=== PATIENT | female | born 1960 ===

== ENCOUNTER 2021-03-02 13:49 | Emergency (ER) | payer OTHER, SELFPAY ==
[2021-03-02 13:53] VITALS: BP 157/82; PULSE 77; RESP 16; TEMP 37.4; O2SAT 100; BMI 43.0
--- NOTE | 2021-03-02 13:58 | PC.NURSE ---
endorsing si in triage, eder jeffries rn called and aware
[2021-03-02 14:40] LABS: MANUAL DIFF FLAG NO
[2021-03-02 14:41] LABS: Basophils Absolute Auto 0.1 X10*3/uL (0.0-0.2); Basophils Percent Auto 0.8 % (0-2); Eosinophils Absolute Auto 0.2 X10*3/uL (0.0-0.4); Eosinophils Percent Auto 3.8 % (0-4); Hematocrit 38.4 % (37-47); Hemoglobin 12.8 g/dl (12.0-16.0); Imm Gran Abs Auto 0.01 X10*3/uL (0.00-0.03); Imm Gran Pct Auto 0.2 % (0.0-0.4); Lymphocytes Absolute Auto 2.3 X10*3/uL (1.2-4.9); Lymphocytes Percent Auto 36.7 % (20-40); Mean Corpuscular HGB Conc 33.3 g/dl (31.0-35.0); Mean Corpuscular Hemoglobin 30.3 pg (27.0-33.0); Mean Platelet Volume 11.1 fL (9.4-12.3); Monocytes Absolute Auto 0.6 X10*3/uL (0.1-1.2); Monocytes Percent Auto 9.4 % (2-11); Neutrophils Absolute Auto 3.1 X10*3/uL (2.0-8.3); Neutrophils Percent Auto 49.1 % (45-73); Platelet Count 236 X10*3/uL (160-400); Red Blood Count 4.22 X10*6/uL (4.20-5.50); Red Cell Distribution Width 13.5 % (11.0-16.0); White Blood Count 6.3 X10*3/uL (4.8-10.8)
--- NOTE | 2021-03-02 14:47 | ED_ITS ---
HPI - Psych General Chief Complaint: Psychiatric Symptoms Stated Complaint: crisis Time Seen by Provider: 03/02/21 13:54 History of Present Illness HPI Narrative: This is a 60 years old of female with history of schizophrenia presented with a chief complain of auditory hallucination. She is also feeling depressed she has a history of prior psychiatric hospitalization. He denies any systemic symptoms there is no fever no vomiting no abdominal pain. MD complaint: feels depressed Onset (ago): day(s) (1) Duration: constant Related Data Allergies Allergy/AdvReac Type Severity Reaction Status Date / Time No Known Allergies Allergy Verified 03/02/21 13:54 Review of Systems Review of Systems: Yes all other systems are reviewed and are negative Cardiovascular: Cardiovascular: Denies chest pain, Denies chest pain at rest and Denies chest pain with activity Respiratory: Respiratory: Reports no additional respiratory complaints and Reports no additional respiratory complaints Gastrointestinal: Gastrointestinal: Reports no additional gastrointestinal complaints and Denies abdominal pain Genitourinary: Genitourinary: Reports no additional female genitourinary complaints Psychiatric: Psychiatric: Reports anxiety PMFSH Social History Social History Advance Directives: No Advance Directives Information Provided: No Physical Exam Vital Signs: Vital Signs: Last Vital Signs Temp 99.3 F 03/02/21 13:53 Pulse 77 03/02/21 13:53 Resp 18 03/02/21 15:43 BP 157/82 H 03/02/21 13:53 Pulse Ox 100 03/02/21 13:53 Body Mass Index 43.0 Const: General: cooperative Orientation/consciousness: oriented to person and oriented to place HENMT: Head: Yes normal to inspection Eyes: General: appearance normal, both eyes and all related structures Neck: Neck: Yes normal visual inspection, Yes full ROM and Yes no lymphadenopathy Thyroid: Thyroid normal Chest: Chest palpation & inspection: normal inspection of the chest Resp: Effort & Inspection: normal respiratory effort Cardio: Rate: regular rate Rhythm: regular rhythm GI: Inspection: Yes normal to inspection Skin: General skin exam: no rashes or lesions noted and elasticity normal Neuro: General: oriented to person and oriented to place Extrem: General: Yes normal to inspection, Yes full ROM and Yes capillary refill normal Course Course Course Narrative: case was trasferred to Dr Zaman MDM - Psych Lab Data Result diagrams: 03/02/21 14:31 03/02/21 14:31 Labs: Lab Results 03/02/21 03/02/21 03/02/21 Range/Units 14:31 14:31 14:31 WBC 6.3 (4.8-10.8) X10*3/uL RBC 4.22 (4.20-5.50) X10*6/uL Hgb 12.8 (12.0-16.0) g/dl Hct 38.4 (37-47) % MCV 91.0 (80-98) fL MCH 30.3 (27.0-33.0) pg MCHC 33.3 (31.0-35.0) g/dl RDW 13.5 (11.0-16.0) % Plt Count 236 (160-400) X10*3/uL MPV 11.1 (9.4-12.3) fL Immature Gran % (Auto) 0.2 (0.0-0.4) % Neut % (Auto) 49.1 (45-73) % Lymph % (Auto) 36.7 (20-40) % Fergus % (Auto) 9.4 (2-11) % Eos % (Auto) 3.8 (0-4) % Baso % (Auto) 0.8 (0-2) % Lymph # (Auto) 2.3 (1.2-4.9) X10*3/uL Fergus # (Auto) 0.6 (0.1-1.2) X10*3/uL Eos # (Auto) 0.2 (0.0-0.4) X10*3/uL Baso # (Auto) 0.1 (0.0-0.2) X10*3/uL Abs Immat Gran (auto) 0.01 (0.00-0.03) X10*3/uL Absolute Neuts (auto) 3.1 (2.0-8.3) X10*3/uL Absolute Nucleated RBC 0.000 (0.0-0.012) X10*3/uL Nucleated RBC % (auto) 0.0 (0.0-0.2) /100WBC Sodium 142 (135-145) mmol/L Potassium 4.3 (3.3-5.1) mmol/L Chloride 105 (96-108) mmol/L Carbon Dioxide 30 H (22-29) mmol/L Anion Gap 11 L (12-20) BUN 16 (9-16) mg/dL Creatinine 0.77 (0.5-1.4) mg/dL Estim Creat Clear Calc 84.6 Estimated GFR > 60 Random Glucose 96 (60-115) mg/dL Calcium 9.5 (8.4-10.2) mg/dL Total Bilirubin 0.5 (0.0-1.0) mg/dL AST 24 (5-31) U/L ALT 20 (0-31) U/L Alkaline Phosphatase 47 (39-117) U/L Total Protein 7.5 (6.5-8.0) g/dL Albumin 4.7 (3.5-5.0) g/dL Urine Color YELLOW Urine Appearance CLEAR Urine pH 6.5 (5.0-8.0) Ur Specific [place] 1.015 (1.005-1.025) Urine Protein NEG (NEG-TRACE) MG/DL Urine Glucose (UA) NEG (NEG) MG/DL Urine Ketones NEG (NEG) MG/DL Urine Blood NEG (NEG) Urine Nitrite NEG (NEG) Ur Leukocyte Esterase NEG (NEG) Urine RBC 0-2 (0) /HPF Urine WBC 0 (0-4) /HPF Ur Squamous Epith Cells NONE /LPF Urine Bacteria NONE /LPF Urine Opiates Screen (Not Detect) Ur Barbiturates Screen (Not Detect) Ur Phencyclidine Scrn (Not Detect) Ur Amphetamines Screen (Not Detect) U Benzodiazepines Scrn (Not Detect) Urine Cocaine Screen (Not Detect) U Marijuana (THC) Screen (Not Detect) 03/02/21 Range/Units 14:31 WBC (4.8-10.8) X10*3/uL RBC (4.20-5.50) X10*6/uL Hgb (12.0-16.0) g/dl Hct (37-47) % MCV (80-98) fL MCH (27.0-33.0) pg MCHC (31.0-35.0) g/dl RDW (11.0-16.0) % Plt Count (160-400) X10*3/uL MPV (9.4-12.3) fL Immature Gran % (Auto) (0.0-0.4) % Neut % (Auto) (45-73) % Lymph % (Auto) (20-40) % Fergus % (Auto) (2-11) % Eos % (Auto) (0-4) % Baso % (Auto) (0-2) % Lymph # (Auto) (1.2-4.9) X10*3/uL Fergus # (Auto) (0.1-1.2) X10*3/uL Eos # (Auto) (0.0-0.4) X10*3/uL Baso # (Auto) (0.0-0.2) X10*3/uL Abs Immat Gran (auto) (0.00-0.03) X10*3/uL Absolute Neuts (auto) (2.0-8.3) X10*3/uL Absolute Nucleated RBC (0.0-0.012) X10*3/uL Nucleated RBC % (auto) (0.0-0.2) /100WBC Sodium (135-145) mmol/L Potassium (3.3-5.1) mmol/L Chloride (96-108) mmol/L Carbon Dioxide (22-29) mmol/L Anion Gap (12-20) BUN (9-16) mg/dL Creatinine (0.5-1.4) mg/dL Estim Creat Clear Calc Estimated GFR Random Glucose (60-115) mg/dL Calcium (8.4-10.2) mg/dL Total Bilirubin (0.0-1.0) mg/dL AST (5-31) U/L ALT (0-31) U/L Alkaline Phosphatase (39-117) U/L Total Protein (6.5-8.0) g/dL Albumin (3.5-5.0) g/dL Urine Color Urine Appearance Urine pH (5.0-8.0) Ur Specific [place] (1.005-1.025) Urine Protein (NEG-TRACE) MG/DL Urine Glucose (UA) (NEG) MG/DL Urine Ketones (NEG) MG/DL Urine Blood (NEG) Urine Nitrite (NEG) Ur Leukocyte Esterase (NEG) Urine RBC (0) /HPF Urine WBC (0-4) /HPF Ur Squamous Epith Cells /LPF Urine Bacteria /LPF Urine Opiates Screen Not Detected (Not Detect) Ur Barbiturates Screen Not Detected (Not Detect) Ur Phencyclidine Scrn Not Detected (Not Detect) Ur Amphetamines Screen Not Detected (Not Detect) U Benzodiazepines Scrn POSITIVE H (Not Detect) Urine Cocaine Screen Not Detected (Not Detect) U Marijuana (THC) Screen Not Detected (Not Detect) Discharge Plan Discharge Clinical Impression: Hallucination
[2021-03-02 14:49] LABS: Glucose Urine UA NEG (NEG); Leukocyte Esterase Urine NEG (NEG); Nitrite Urine NEG (NEG); PH 6.5 (5.0-8.0); Specific Gravity - Urine 1.015 (1.005-1.025); Urine Blood NEG (NEG); Urine Ketones NEG (NEG); Urine Protein NEG (NEG-TRACE)
[2021-03-02 14:50] LABS: Appearance Urine CLEAR; Color Urine YELLOW
[2021-03-02] MEDS: LORazepam 1 MG TABLET PO (15:04)
[2021-03-02 15:10] LABS: RBC Urine 0-2 /HPF (0); WBC Urine 0 /HPF (0-4)
[2021-03-02 15:11] LABS: Amphetamine Screen Urine Not Detected (Not Detect); Barbiturates, Urine Not Detected (Not Detect); Benzodiazepines Screen Urine POSITIVE (Not Detect); Cannabinoid Screen Urine Not Detected (Not Detect); Cocaine Screen Urine Not Detected (Not Detect); Opiate Screen Urine Not Detected (Not Detect); Phencyclidine Screen Urine Not Detected (Not Detect)
[2021-03-02 15:13] LABS: Alanine Aminotransferase 20 U/L (0-31); Albumin Level 4.7 g/dL (3.5-5.0); Alkaline Phosphatase 47 U/L (39-117); Anion Gap 11 (12-20); Aspartate Amino Transferase 24 U/L (5-31); Bilirubin Total 0.5 mg/dL (0.0-1.0); Blood Urea Nitrogen 16 mg/dL (9-16); Calcium 9.5 mg/dL (8.4-10.2); Carbon Dioxide 30 mmol/L (22-29); Chloride 105 mmol/L (96-108); Creatinine Clr Calc Pharmacy 84.6; Estimated Glomerular Filt Rate > 60; Glucose Random 96 mg/dL (60-115); Potassium 4.3 mmol/L (3.3-5.1); Sodium 142 mmol/L (135-145); Total Protein 7.5 g/dL (6.5-8.0)
--- NOTE | 2021-03-02 15:22 | PC.NURSE ---
FAXED AND CALLED TO [facility] SPOKE WITH DERECK
[2021-03-02 15:43] VITALS: RESP 18
[2021-03-02 17:41] VITALS: RESP 18
[2021-03-02] MEDS: LORazepam 1 MG TABLET 2 MG PO (18:39)
--- NOTE | 2021-03-02 18:51 | PC.NURSE ---
[facility] HERE TO EVALUATE PATIENT
[2021-03-02 19:40] VITALS: BP 126/60; PULSE 77; RESP 17; TEMP 36.6; O2SAT 94
--- NOTE | 2021-03-02 21:36 | PC.NURSE ---
PT RESTING IN CHAIR, SKIN PWD RESPIRATIONS EVEN UNLABORED, OFFERS NO COMPLAINTS AT THIS TIME, PER N PT INPT BEDSEARCH. PO AT BEDSIDE FOR SAFETY.
[2021-03-02 21:54] VITALS: BP 93/51; PULSE 60; RESP 20; TEMP 36.9; O2SAT 98
--- NOTE | 2021-03-02 22:57 | PC.NURSE ---
PT AMB TO BATHROOM STEADY GAIT, PLEASANT WITH RN, MOVED TO 6H STRETCHER FOR COMFORT. INPT BEDSEARCH, AWARE OF PLAN OF CARE. PO AT BEDSIDE FOR SAFETY.
[2021-03-03] VITALS: RESP 16
--- NOTE | 2021-03-03 | ECG_ITS ---
Test Reason : MEDICAL CLEARANCE Blood Pressure : / mmHG Vent. Rate : 054 BPM Atrial Rate : 054 BPM P-R Int : 152 ms QRS Dur : 088 ms QT Int : 440 ms P-R-T Axes : 065 066 028 degrees QTc Int : 417 ms Sinus bradycardia with Premature ventricular complexes Otherwise normal ECG No previous ECGs available Referred By: Macrina Cardona Electronically Signed By:Jarred Mccord
[2021-03-03 03:58] VITALS: BP 126/67; PULSE 61
[2021-03-03] MEDS: cloNIDine HCL 0.1 MG TABLET PO ×2 (03:58→09:20)
[2021-03-03] MEDS: diazePAM 5 MG TABLET PO (04:00)
[2021-03-03 04:01] VITALS: BP 126/67; PULSE 61; RESP 58; O2SAT 97
--- NOTE | 2021-03-03 04:02 | PC.NURSE ---
pt states she was feeling anxiouse inside, pt medicated, vitals stable. pt calm and cooperative.
--- NOTE | 2021-03-03 05:23 | PC.NURSE ---
pt sleeping medication had a good effect.
[2021-03-03 07:38] VITALS: BP 118/64; PULSE 61; RESP 18; O2SAT 98
--- NOTE | 2021-03-03 08:10 | PC.NURSE ---
[facility] ([phone]) at [address] [place] [id number] was called this am for pt suboxone verification. [facility] is closed at this time, but a message was left on there voicemail for them to return call to this rn. pt is aware.
--- NOTE | 2021-03-03 08:29 | PC.NURSE ---
Report received. PT ambulated to pod with steady gait. Pt requesting medication. Calm and cooperative. PT is inpatient bedsearch
--- NOTE | 2021-03-03 08:43 | PC.NURSE ---
leon hadley (rn, information tech) from [facility] returned call and states that pt takes suboxone 12mg film daily, ayala ([facility] information tech) and skip (rn) aware.
[2021-03-03 09:15] VITALS: BP 120/72; PULSE 59; RESP 18; TEMP 37.2; O2SAT 98
[2021-03-03 09:20] VITALS: BP 120/72; PULSE 59
[2021-03-03] MEDS: Buprenorphine/Naloxone 4/1 mg FILM 1 FILM SUBLINGUAL (09:21)
[2021-03-03] MEDS: LORazepam 1 MG TABLET 2 MG PO (09:21)
[2021-03-03 11:09] LABS: COVID-19 Test Negative (Negative)
--- NOTE | 2021-03-03 11:30 | PC.NURSE ---
Nurse to nurse completed with Nallely SCHUSTER from [facility], they request EKG be completed. Pt to arrive at [facility] for 1:30pm
[2021-03-03] MEDS: diphenhydrAMINE HCL 25 MG TABLET 50 MG PO (12:06)
== END 2021-03-03 12:36 ==
PROVIDERS: Nurse Practitioner Family; Nurse Practitioner Primary Care; Emergency Provider Emergency Medicine
DX: R44.0 Auditory hallucinations (principal); F33.1 Major depressive disorder, recurrent, moderate; Z79.899 Other long term (current) drug therapy; Z20.822 Contact with and (suspected) exposure to COVID-19
CPT/HCPCS: 36415; 80053; 80307; 81001; 85025; 87635; 93005; 99285; Q0163

== ENCOUNTER 2021-05-16 21:52 | Inpatient (IN) | payer OTHER, SELFPAY ==
[2021-05-16 21:57] VITALS: BP 124/82; PULSE 65; O2SAT 95
[2021-05-16 21:59] VITALS: BP 120/64; PULSE 64; RESP 18; TEMP 36.6; O2SAT 98; BMI 42.9
--- NOTE | 2021-05-16 22:17 | PC.NURSE ---
pt is not med compliant with any meds. per patient i havent' taken it in months .
--- NOTE | 2021-05-16 22:37 | PC.NURSE ---
Pt requests medication to help her sleep and to calm her down. pt edcuated to process of [facility] pod. pt informed that she must await provider
[2021-05-16 22:40] LABS: Basophils Percent Auto 0.6 % (0-2); Eosinophils Absolute Auto 0.3 X10*3/uL (0.0-0.4); Eosinophils Percent Auto 4.2 % (0-4); Hematocrit 34.9 % (37-47); Hemoglobin 11.5 g/dl (12.0-16.0); Imm Gran Abs Auto 0.01 X10*3/uL (0.00-0.03); Imm Gran Pct Auto 0.2 % (0.0-0.4); Lymphocytes Absolute Auto 2.1 X10*3/uL (1.2-4.9); MANUAL DIFF FLAG NO; Mean Corpuscular Hemoglobin 29.8 pg (27.0-33.0); Mean Corpuscular Volume 90.4 fL (80-98); Mean Platelet Volume 10.7 fL (9.4-12.3); Monocytes Absolute Auto 0.6 X10*3/uL (0.1-1.2); Monocytes Percent Auto 9.7 % (2-11); Neutrophils Absolute Auto 3.5 X10*3/uL (2.0-8.3); Neutrophils Percent Auto 53.3 % (45-73); Platelet Count 220 X10*3/uL (160-400); Red Blood Count 3.86 X10*6/uL (4.20-5.50); White Blood Count 6.6 X10*3/uL (4.8-10.8)
[2021-05-16 22:42] LABS: Urine Pregnancy NEGATIVE (NEGATIVE)
[2021-05-16 22:43] LABS: UPreg QC Valid YES
[2021-05-16 22:44] LABS: Appearance Urine HAZY; Color Urine YELLOW; Glucose Urine UA NEG (NEG); Leukocyte Esterase Urine 1+ (NEG); Nitrite Urine NEG (NEG); Specific Gravity - Urine <= 1.005 (1.005-1.025); Urine Blood NEG (NEG); Urine Ketones NEG (NEG); Urine Protein NEG (NEG-TRACE)
[2021-05-16 22:56] LABS: COVID-19 Test Negative (Negative); IDNOW Serial# 9DD0AD1C
[2021-05-16 22:59] LABS: Bacteria Urine 1+ /LPF; RBC Urine 0-2 /HPF (0); Squamous Epithelial Cell Urine 1+ /LPF; WBC Urine 0-2 /HPF (0-4)
[2021-05-16 23:05] LABS: Ethanol < 10 mg/dL
[2021-05-16 23:07] LABS: Amphetamine Screen Urine Not Detected (Not Detect); Barbiturates, Urine Not Detected (Not Detect); Benzodiazepines Screen Urine POSITIVE (Not Detect); Cannabinoid Screen Urine Not Detected (Not Detect); Cocaine Screen Urine Not Detected (Not Detect); Opiate Screen Urine Not Detected (Not Detect); Phencyclidine Screen Urine Not Detected (Not Detect)
[2021-05-16 23:08] LABS: Alanine Aminotransferase 16 U/L (0-31); Albumin Level 4.4 g/dL (3.5-5.0); Alkaline Phosphatase 56 U/L (39-117); Anion Gap 11 (12-20); Aspartate Amino Transferase 23 U/L (5-31); Bilirubin Total 0.4 mg/dL (0.0-1.0); Blood Urea Nitrogen 19 mg/dL (9-16); Calcium 9.5 mg/dL (8.4-10.2); Carbon Dioxide 28 mmol/L (22-29); Chloride 107 mmol/L (96-108); Creatinine Clr Calc Pharmacy 76.4; Estimated Glomerular Filt Rate 58; Glucose Random 89 mg/dL (60-115); Potassium 4.4 mmol/L (3.3-5.1); Sodium 142 mmol/L (135-145); Total Protein 6.8 g/dL (6.5-8.0)
--- NOTE | 2021-05-16 23:12 | ED.PSYCH ---
HPI - Psych General Chief Complaint: Psychiatric Symptoms Stated Complaint: SI? Time Seen by Provider: 05/16/21 23:12 Source: patient Mode of arrival: EMS History of Present Illness HPI Narrative: This is a 60-year-old female with extensive past psychiatric history who states that she has been intermittently taking her medications but on review of documentation patient has been declining her medications. She states that she is having auditory hallucinations and that the voices are telling her to hurt other people, however patient states that ?I would never do this?. Otherwise, she denies any feelings wanting to kill herself but states she does feel sad. Otherwise, patient denies any fever, chills, shortness of breath, chest pain, urinary symptoms. Related Data Allergies Allergy/AdvReac Type Severity Reaction Status Date / Time No Known Allergies Allergy Verified 03/02/21 13:54 Review of Systems Review of Systems: Pertinent positives and negatives as stated in HPI 10 point review of systems is otherwise negative. PMFSH Past Medical History Source: nursing notes reviewed Social History Social History Alcohol intake: current Alcohol intake frequency: 0-2 drinks per day Patient Tobacco Use Status: Current everyday Tobacco user Smoked in Last 30 Days: Yes Use of substances other than those prescribed or required for medical reasons: Refusing to respond Advance Directives: No Patient : No Physical Exam Vital Signs: Vital Signs: Last Vital Signs Temp 97.9 F 05/17/21 00:05 Pulse 84 05/17/21 00:05 Resp 18 05/17/21 00:05 BP 122/66 05/17/21 00:05 Pulse Ox 98 05/17/21 00:05 Body Mass Index 42.9 VITAL SIGNS: Reviewed. GENERAL: Well developed, well nourished, in no acute distress. HEAD: Normocephalic/atraumatic EYES: PERRLA, EOMI OROPHARYNX: no oral lesions noted, posterior pharynx clear NECK: Supple, no adenopathy LUNGS: Normal breath sounds. No adventitious sounds or accessory muscle use. SpO2<98> CARDIOVASCULAR: Regular rate and rhythm without noted murmurs ABDOMEN: Soft, non-tender, non-distended with bowel sounds. NEUROLOGIC: Alert and oriented x 4. PSYCH: Depressed affect Course Course Course Narrative: This is a 60-year-old female with history and clinical presentation suggestive of auditory hallucinations, depressed symptoms. On review of all investigations patient has a UTI for which she will be treated and is otherwise medically cleared for evaluation by the behavioral team. Reevaluation(s) Reevaluation #1: Patient placed in physician observation because the patient needed more time to be evaluated by the behavioral team. At the time observation was started the patient's vital signs were stable, patient is alert and oriented, neuro: Nonfocal, CV RRR, lungs clear Time: 00:39 MDM - Psych Lab Data Result diagrams: 05/16/21 22:32 05/16/21 22:32 Labs: Lab Results 05/16/21 05/16/21 05/16/21 Range/Units 22:32 22:32 22:32 WBC 6.6 (4.8-10.8) X10*3/uL RBC 3.86 L (4.20-5.50) X10*6/uL Hgb 11.5 L (12.0-16.0) g/dl Hct 34.9 L (37-47) % MCV 90.4 (80-98) fL MCH 29.8 (27.0-33.0) pg MCHC 33.0 (31.0-35.0) g/dl RDW 14.0 (11.0-16.0) % Plt Count 220 (160-400) X10*3/uL MPV 10.7 (9.4-12.3) fL Immature Gran % (Auto) 0.2 (0.0-0.4) % Neut % (Auto) 53.3 (45-73) % Lymph % (Auto) 32.0 (20-40) % Gregory % (Auto) 9.7 (2-11) % Eos % (Auto) 4.2 H (0-4) % Baso % (Auto) 0.6 (0-2) % Lymph # (Auto) 2.1 (1.2-4.9) X10*3/uL Gregory # (Auto) 0.6 (0.1-1.2) X10*3/uL Eos # (Auto) 0.3 (0.0-0.4) X10*3/uL Baso # (Auto) 0.0 (0.0-0.2) X10*3/uL Abs Immat Gran (auto) 0.01 (0.00-0.03) X10*3/uL Absolute Neuts (auto) 3.5 (2.0-8.3) X10*3/uL Absolute Nucleated RBC 0.000 (0.0-0.012) X10*3/uL Nucleated RBC % (auto) 0.0 (0.0-0.2) /100WBC Sodium 142 (135-145) mmol/L Potassium 4.4 (3.3-5.1) mmol/L Chloride 107 (96-108) mmol/L Carbon Dioxide 28 (22-29) mmol/L Anion Gap 11 L (12-20) BUN 19 H (9-16) mg/dL Creatinine 0.99 (0.5-1.4) mg/dL Estim Creat Clear Calc 76.4 Estimated GFR 58 Random Glucose 89 (60-115) mg/dL Calcium 9.5 (8.4-10.2) mg/dL Total Bilirubin 0.4 (0.0-1.0) mg/dL AST 23 (5-31) U/L ALT 16 (0-31) U/L Alkaline Phosphatase 56 (39-117) U/L Total Protein 6.8 (6.5-8.0) g/dL Albumin 4.4 (3.5-5.0) g/dL Urine Color Urine Appearance Urine pH (5.0-8.0) Ur Specific [place] (1.005-1.025) Urine Protein (NEG-TRACE) MG/DL Urine Glucose (UA) (NEG) MG/DL Urine Ketones (NEG) MG/DL Urine Blood (NEG) Urine Nitrite (NEG) Ur Leukocyte Esterase (NEG) Urine RBC (0) /HPF Urine WBC (0-4) /HPF Ur Squamous Epith Cells /LPF Urine Bacteria /LPF Urine Test (NEGATIVE) Urine Opiates Screen (Not Detect) Ur Barbiturates Screen (Not Detect) Ur Phencyclidine Scrn (Not Detect) Ur Amphetamines Screen (Not Detect) U Benzodiazepines Scrn (Not Detect) Urine Cocaine Screen (Not Detect) U Marijuana (THC) Screen (Not Detect) Ethyl Alcohol mg/dL COVID-19 (MIC) Negative (Negative) COVID-19 Clin Com See Note 05/16/21 05/16/21 05/16/21 Range/Units 22:32 22:32 22:32 WBC (4.8-10.8) X10*3/uL RBC (4.20-5.50) X10*6/uL Hgb (12.0-16.0) g/dl Hct (37-47) % MCV (80-98) fL MCH (27.0-33.0) pg MCHC (31.0-35.0) g/dl RDW (11.0-16.0) % Plt Count (160-400) X10*3/uL MPV (9.4-12.3) fL Immature Gran % (Auto) (0.0-0.4) % Neut % (Auto) (45-73) % Lymph % (Auto) (20-40) % Gregory % (Auto) (2-11) % Eos % (Auto) (0-4) % Baso % (Auto) (0-2) % Lymph # (Auto) (1.2-4.9) X10*3/uL Gregory # (Auto) (0.1-1.2) X10*3/uL Eos # (Auto) (0.0-0.4) X10*3/uL Baso # (Auto) (0.0-0.2) X10*3/uL Abs Immat Gran (auto) (0.00-0.03) X10*3/uL Absolute Neuts (auto) (2.0-8.3) X10*3/uL Absolute Nucleated RBC (0.0-0.012) X10*3/uL Nucleated RBC % (auto) (0.0-0.2) /100WBC Sodium (135-145) mmol/L Potassium (3.3-5.1) mmol/L Chloride (96-108) mmol/L Carbon Dioxide (22-29) mmol/L Anion Gap (12-20) BUN (9-16) mg/dL Creatinine (0.5-1.4) mg/dL Estim Creat Clear Calc Estimated GFR Random Glucose (60-115) mg/dL Calcium (8.4-10.2) mg/dL Total Bilirubin (0.0-1.0) mg/dL AST (5-31) U/L ALT (0-31) U/L Alkaline Phosphatase (39-117) U/L Total Protein (6.5-8.0) g/dL Albumin (3.5-5.0) g/dL Urine Color YELLOW Urine Appearance HAZY Urine pH 6.0 (5.0-8.0) Ur Specific [place] <= 1.005 (1.005-1.025) Urine Protein NEG (NEG-TRACE) MG/DL Urine Glucose (UA) NEG (NEG) MG/DL Urine Ketones NEG (NEG) MG/DL Urine Blood NEG (NEG) Urine Nitrite NEG (NEG) Ur Leukocyte Esterase 1+ H (NEG) Urine RBC 0-2 (0) /HPF Urine WBC 0-2 (0-4) /HPF Ur Squamous Epith Cells 1+ /LPF Urine Bacteria 1+ /LPF Urine Test NEGATIVE (NEGATIVE) Urine Opiates Screen (Not Detect) Ur Barbiturates Screen (Not Detect) Ur Phencyclidine Scrn (Not Detect) Ur Amphetamines Screen (Not Detect) U Benzodiazepines Scrn (Not Detect) Urine Cocaine Screen (Not Detect) U Marijuana (THC) Screen (Not Detect) Ethyl Alcohol < 10 mg/dL COVID-19 (MIC) (Negative) COVID-19 Clin Com 05/16/21 Range/Units 22:32 WBC (4.8-10.8) X10*3/uL RBC (4.20-5.50) X10*6/uL Hgb (12.0-16.0) g/dl Hct (37-47) % MCV (80-98) fL MCH (27.0-33.0) pg MCHC (31.0-35.0) g/dl RDW (11.0-16.0) % Plt Count (160-400) X10*3/uL MPV (9.4-12.3) fL Immature Gran % (Auto) (0.0-0.4) % Neut % (Auto) (45-73) % Lymph % (Auto) (20-40) % Gregory % (Auto) (2-11) % Eos % (Auto) (0-4) % Baso % (Auto) (0-2) % Lymph # (Auto) (1.2-4.9) X10*3/uL Gregory # (Auto) (0.1-1.2) X10*3/uL Eos # (Auto) (0.0-0.4) X10*3/uL Baso # (Auto) (0.0-0.2) X10*3/uL Abs Immat Gran (auto) (0.00-0.03) X10*3/uL Absolute Neuts (auto) (2.0-8.3) X10*3/uL Absolute Nucleated RBC (0.0-0.012) X10*3/uL Nucleated RBC % (auto) (0.0-0.2) /100WBC Sodium (135-145) mmol/L Potassium (3.3-5.1) mmol/L Chloride (96-108) mmol/L Carbon Dioxide (22-29) mmol/L Anion Gap (12-20) BUN (9-16) mg/dL Creatinine (0.5-1.4) mg/dL Estim Creat Clear Calc Estimated GFR Random Glucose (60-115) mg/dL Calcium (8.4-10.2) mg/dL Total Bilirubin (0.0-1.0) mg/dL AST (5-31) U/L ALT (0-31) U/L Alkaline Phosphatase (39-117) U/L Total Protein (6.5-8.0) g/dL Albumin (3.5-5.0) g/dL Urine Color Urine Appearance Urine pH (5.0-8.0) Ur Specific [place] (1.005-1.025) Urine Protein (NEG-TRACE) MG/DL Urine Glucose (UA) (NEG) MG/DL Urine Ketones (NEG) MG/DL Urine Blood (NEG) Urine Nitrite (NEG) Ur Leukocyte Esterase (NEG) Urine RBC (0) /HPF Urine WBC (0-4) /HPF Ur Squamous Epith Cells /LPF Urine Bacteria /LPF Urine Test (NEGATIVE) Urine Opiates Screen Not Detected (Not Detect) Ur Barbiturates Screen Not Detected (Not Detect) Ur Phencyclidine Scrn Not Detected (Not Detect) Ur Amphetamines Screen Not Detected (Not Detect) U Benzodiazepines Scrn POSITIVE H (Not Detect) Urine Cocaine Screen Not Detected (Not Detect) U Marijuana (THC) Screen Not Detected (Not Detect) Ethyl Alcohol mg/dL COVID-19 (MIC) (Negative) COVID-19 Clin Com
[2021-05-16] MEDS: cephALEXin 500 MG CAPSULE PO (23:42)
--- NOTE | 2021-05-16 23:55 | PC.NURSE ---
provided verbal order to contact [facility] at this time.
[2021-05-17] VITALS (7 sets, daily range): BP systolic 122–149; BP diastolic 55–97; PULSE 54–84; RESP 16–18; TEMP 36–36.6; O2SAT 97–99
--- NOTE | 2021-05-17 00:24 | PC.NURSE ---
pt becomes verbally aggressive when asked to step away from nurses situation so that this brief writer can disclose sensative patient information to [facility]- You don't fucking know what i'm going to do. I'm not going to fucking eat my sandwich here. You can't tell me what to do, I don't like you're attiude .
[2021-05-17] MEDS: diphenhydrAMINE HCL 25 MG TABLET PO (00:28)
--- NOTE | 2021-05-17 06:52 | PC.NURSE ---
[facility] pharmacy contacted to verify PT med list.
[2021-05-17] MEDS: Buprenorphine/Naloxone 8/2 mg FILM 2 FILM SUBLINGUAL (08:07)
[2021-05-17] MEDS: Cholecalciferol (Vitamin D3) 25 MCG TABLET PO (08:07)
[2021-05-17] MEDS: cloNIDine HCL 0.1 MG TABLET PO ×3 (08:07→21:20)
[2021-05-17] MEDS: HaloperidoL 1 MG TABLET 2 MG PO ×2 (08:08→21:20)
[2021-05-17] MEDS: hydrOXYzine HCL 50 MG TABLET PO ×3 (08:09→21:24)
[2021-05-17] MEDS: diazePAM 5 MG TABLET PO ×3 (08:14→21:24)
--- NOTE | 2021-05-17 12:17 | PC.NURSE ---
PT RESTING IN HIS ROOM AT THIS TIME. RESP EVEN & NONLABOURED. NO COMPLAINTS OFFERED.
[2021-05-17] MEDS: Buprenorphine/Naloxone 8/2 mg FILM 0.5 FILM SUBLINGUAL ×2 (13:56→21:22)
--- NOTE | 2021-05-17 15:07 | ECG_ITS ---
Test Reason : MEDICALCLEARANCE Blood Pressure : / mmHG Vent. Rate : 053 BPM Atrial Rate : 053 BPM P-R Int : 170 ms QRS Dur : 090 ms QT Int : 458 ms P-R-T Axes : 047 044 056 degrees QTc Int : 429 ms Sinus bradycardia Otherwise normal ECG When compared to the previous EKG of 03 march 2021, Premature ventricular complexes not seen Referred By: Generic ED Physician Electronically Signed By:NELA JAQUEZ
--- NOTE | 2021-05-17 15:11 | PC.NURSE ---
RN TO RN REPORT GIVEN TO [facility]. EKG REQUESTED, ORDER ENTERED.
[2021-05-17] MEDS: Acetaminophen 325 MG TABLET 975 MG PO (18:31)
[2021-05-17] MEDS: Diclofenac Sodium Delayed Rel 75 MG TABLET.DR PO (18:36)
--- NOTE | 2021-05-17 19:58 | PC.NURSE ---
[facility] called and verified the admit order and when pt will be transfered, preferred to wait on meds till she is in m5. pt made aware. pt was asking for all her night time medications at this time. pt calm and cooperative ambulates with a steady gait. needs met at bedside, visable on monitor.
--- NOTE | 2021-05-17 21:33 | PC.NURSE ---
called for the clinical impression to be entered. pt still on the pod tracker.
[2021-05-17] MEDS: Zolpidem Tartrate 5 MG TABLET PO (22:56)
[2021-05-18] MEDS: traZODone HCL 50 MG TABLET PO (00:59)
[2021-05-18] MEDS: diazePAM 5 MG TABLET PO ×3 (00:59→21:34)
--- NOTE | 2021-05-18 02:09 | PC.NURSE ---
pt has been transfered to 512 at 2015 on 05/17/21. unable to depart from tracker due to the doctor needs to put the disposition in. [facility] has been called and the dr has been made aware of the need to enter the information. pt per F29 and F41.9.
[2021-05-18 06:00] VITALS: BP 142/68; PULSE 61; RESP 20; TEMP 36.1; O2SAT 98
[2021-05-18] MEDS: Diclofenac Sodium Delayed Rel 75 MG TABLET.DR PO ×2 (06:20→14:52)
[2021-05-18 08:02] VITALS: BP 151/94; PULSE 69
[2021-05-18] MEDS: cloNIDine HCL 0.1 MG TABLET PO ×3 (08:02→20:49)
[2021-05-18] MEDS: HaloperidoL 1 MG TABLET 2 MG PO ×3 (08:03→18:24)
[2021-05-18] MEDS: Buprenorphine/Naloxone 8/2 mg FILM 1 FILM SUBLINGUAL (08:04)
[2021-05-18] MEDS: Cholecalciferol (Vitamin D3) 25 MCG TABLET PO (08:27)
[2021-05-18] MEDS: hydrOXYzine HCL 50 MG TABLET PO ×3 (09:03→21:38)
--- NOTE | 2021-05-18 10:06 | HO.PSYADMNOT ---
HPI Chief Complaint: SUICIDAL Sources of Information: patient interviewed, chart reviewed and crisis/core team assessment reviewed HPI Subjective Notes: [place] Warning and Conditional Voluntary Narrative: Patient is a 60-year-old female with history of psychotic symptoms who presents for auditory hallucinations affecting her mood in the face of going off medications few weeks ago. She says that since she moved back to her apartment August 2020 she has had trouble sleeping, not had nightmares, feels the house is haunted and has auditory hallucinations telling her to move out of the apartment. These voices are also saying mean and ?disgusting things. ? She says she got better over the winter because she was more able to ignore the voices. However a few weeks ago she decided to stand up to the voices and said ?I am the boss. Since then she has found to have increased anxiety, more nightmares, very little sleep, feeling hyperactive with her mind racing. She also feels physically nauseous. She denies any suicidal ideation or homicidal ideation and clarifies comments made in the ED saying that the voices would tell her to hurt others but she never wanted to and never would. Financial Advisor asked about medications and she said that when the voices got so overwhelming she started forgetting to take medications and even would forget to eat and drink sometimes just trying to cope with the voices. Patient does report feeling depressed, but says it is only because the voices bother her so much; if they were gone she would have no depression. Currently she is feeling a little better now on the unit. She continues to deny any SI or HI. She also has increased insight as she formally thought the voices were form of witchcraft, she now is strongly considering that it is psychiatric illness. To that end patient agrees to increase Haldol. Otherwise she does not want any of her medications changed saying she has been on them for years. Patient denies any drug abuse; she denies history of trauma. She does report that her nephew 3 months ago which was sad and she is tearful when talking about her father's ?long time ago. ? Past Psychiatric History: Psychiatrically hospitalized 2 months ago for similar presentation Med trials: Abilify Seroquel Other benzos Medical Evaluation Reviewed: Yes FORMERLY [facility], [facility] Medical History (Updated 05/18/21 @ 13:31 by Nima Mcguire MD) Opioid use disorder, mild, in sustained remission, on maintenance therapy Family History: deferred Social History: lives alone Substance History: sober for 21 years, on suboxone Trauma History: denies Diagnostics Vital Signs (24Hr): Vital Signs - 24 hr 05/17/21 18:20 05/17/21 19:48 05/17/21 21:20 Temperature 96.8 F Pulse Rate 65 64 Respiratory Rate 18 18 Blood Pressure 127/74 137/97 H Pulse Oximetry 97 05/18/21 06:00 05/18/21 08:02 Temperature 96.9 F Pulse Rate 61 69 Respiratory Rate 20 Blood Pressure 142/68 H 151/94 H Pulse Oximetry 98 Body Mass Index 42.9 Labs Results: 05/16/21 22:32 05/16/21 22:32 Labs: Laboratory Results - last 48 hr 05/16/21 05/16/21 05/16/21 22:32 22:32 22:32 WBC 6.6 RBC 3.86 L Hgb 11.5 L Hct 34.9 L MCV 90.4 MCH 29.8 MCHC 33.0 RDW 14.0 Plt Count 220 MPV 10.7 Immature Gran % (Auto) 0.2 Neut % (Auto) 53.3 Lymph % (Auto) 32.0 Clarke % (Auto) 9.7 Eos % (Auto) 4.2 H Baso % (Auto) 0.6 Lymph # (Auto) 2.1 Clarke # (Auto) 0.6 Eos # (Auto) 0.3 Baso # (Auto) 0.0 Abs Immat Gran (auto) 0.01 Absolute Neuts (auto) 3.5 Absolute Nucleated RBC 0.000 Nucleated RBC % (auto) 0.0 Sodium 142 Potassium 4.4 Chloride 107 Carbon Dioxide 28 Anion Gap 11 L BUN 19 H Creatinine 0.99 Estim Creat Clear Calc 76.4 Estimated GFR 58 Random Glucose 89 Calcium 9.5 Total Bilirubin 0.4 AST 23 ALT 16 Alkaline Phosphatase 56 Total Protein 6.8 Albumin 4.4 Urine Color Urine Appearance Urine pH Ur Specific [place] Urine Protein Urine Glucose (UA) Urine Ketones Urine Blood Urine Nitrite Ur Leukocyte Esterase Urine RBC Urine WBC Ur Squamous Epith Cells Urine Bacteria Urine Test Urine Opiates Screen Ur Barbiturates Screen Ur Phencyclidine Scrn Ur Amphetamines Screen U Benzodiazepines Scrn Urine Cocaine Screen U Marijuana (THC) Screen Ethyl Alcohol COVID-19 (MIC) Negative COVID-19 Clin Com See Note 05/16/21 05/16/21 05/16/21 22:32 22:32 22:32 WBC RBC Hgb Hct MCV MCH MCHC RDW Plt Count MPV Immature Gran % (Auto) Neut % (Auto) Lymph % (Auto) Clarke % (Auto) Eos % (Auto) Baso % (Auto) Lymph # (Auto) Clarke # (Auto) Eos # (Auto) Baso # (Auto) Abs Immat Gran (auto) Absolute Neuts (auto) Absolute Nucleated RBC Nucleated RBC % (auto) Sodium Potassium Chloride Carbon Dioxide Anion Gap BUN Creatinine Estim Creat Clear Calc Estimated GFR Random Glucose Calcium Total Bilirubin AST ALT Alkaline Phosphatase Total Protein Albumin Urine Color YELLOW Urine Appearance HAZY Urine pH 6.0 Ur Specific [place] <= 1.005 Urine Protein NEG Urine Glucose (UA) NEG Urine Ketones NEG Urine Blood NEG Urine Nitrite NEG Ur Leukocyte Esterase 1+ H Urine RBC 0-2 Urine WBC 0-2 Ur Squamous Epith Cells 1+ Urine Bacteria 1+ Urine Test NEGATIVE Urine Opiates Screen Ur Barbiturates Screen Ur Phencyclidine Scrn Ur Amphetamines Screen U Benzodiazepines Scrn Urine Cocaine Screen U Marijuana (THC) Screen Ethyl Alcohol < 10 COVID-19 (MIC) COVID-ihiji Com 05/16/21 22:32 WBC RBC Hgb Hct MCV MCH MCHC RDW Plt Count MPV Immature Gran % (Auto) Neut % (Auto) Lymph % (Auto) Clarke % (Auto) Eos % (Auto) Baso % (Auto) Lymph # (Auto) Clarke # (Auto) Eos # (Auto) Baso # (Auto) Abs Immat Gran (auto) Absolute Neuts (auto) Absolute Nucleated RBC Nucleated RBC % (auto) Sodium Potassium Chloride Carbon Dioxide Anion Gap BUN Creatinine Estim Creat Clear Calc Estimated GFR Random Glucose Calcium Total Bilirubin AST ALT Alkaline Phosphatase Total Protein Albumin Urine Color Urine Appearance Urine pH Ur Specific [place] Urine Protein Urine Glucose (UA) Urine Ketones Urine Blood Urine Nitrite Ur Leukocyte Esterase Urine RBC Urine WBC Ur Squamous Epith Cells Urine Bacteria Urine Test Urine Opiates Screen Not Detected Ur Barbiturates Screen Not Detected Ur Phencyclidine Scrn Not Detected Ur Amphetamines Screen Not Detected U Benzodiazepines Scrn POSITIVE H Urine Cocaine Screen Not Detected U Marijuana (THC) Screen Not Detected Ethyl Alcohol COVID-19 (MIC) COVID-19 Clin Com Meds/Allergies Meds Home Medications Acetaminophen (Acetaminophen 325 Mg Tablet) 650 mg PO Q6H PRN PRN Reason: Headache/Pain Mild Scale (1-3) Al Hydroxide/Mg Hydroxide (Magnesium Hydrox/Alum Hydrox 30 Ml Oral.Susp) 30 ml PO Q6H PRN PRN Reason: Heartburn/Nausea Al Hydroxide/Mg Hydroxide (Magnesium Hydrox/Alum Hydrox 30 Ml Oral.Susp) 30 ml PO Q6H PRN PRN Reason: Heartburn/Nausea Buprenorphine/Naloxone (Buprenorphine/Naloxone 8/2 Mg Film) 1 film SUBLINGUAL DAILY [facility] [place] Last Admin: 05/18/21 08:04 Dose: 1 film Documented by: Buprenorphine/Naloxone (Buprenorphine/Naloxone 8/2 Mg Film) 0.5 film SUBLINGUAL BID@1400,2100 [facility] [place] Last Admin: 05/17/21 21:22 Dose: 0.5 film Documented by: Cefuroxime Axetil (Cefuroxime Axetil 500 Mg Tablet) 500 mg PO BID [facility] [place] Stop: 05/24/21 08:59 Last Admin: 05/18/21 08:27 Dose: 500 mg Documented by: Clonidine HCl (Clonidine Hcl 0.1 Mg Tablet) 0.1 mg PO TID [facility] [place]; Protocol Last Admin: 05/18/21 08:02 Dose: 0.1 mg Documented by: Diazepam (Diazepam 5 Mg Tablet) 5 mg PO TID PRN PRN Reason: Anxiety Last Admin: 05/18/21 08:08 Dose: 5 mg Documented by: Diclofenac Sodium (Diclofenac Sodium Delayed Rel 75 Mg Tablet.) 75 mg PO BID PRN PRN Reason: pain Last Admin: 05/18/21 06:20 Dose: 75 mg Documented by: Haloperidol (Haloperidol 5 Mg Tablet) 5 mg PO BEDTIME NEL Haloperidol (Haloperidol 1 Mg Tablet) 2 mg PO Q4H PRN PRN Reason: anxiety or AH or agitation Last Admin: 05/18/21 12:31 Dose: 2 mg Documented by: Hydroxyzine HCl (Hydroxyzine Hcl 50 Mg Tablet) 50 mg PO Q6H PRN PRN Reason: Anxiety Last Admin: 05/18/21 09:03 Dose: 50 mg Documented by: Magnesium Hydroxide (Milk Of Magnesia 30 Ml Oral.Susp) 30 ml PO DAILY PRN PRN Reason: Constipation Magnesium Hydroxide (Milk Of Magnesia 30 Ml Oral.Susp) 30 ml PO DAILY PRN PRN Reason: Constipation Trazodone HCl (Trazodone Hcl 50 Mg Tablet) 50 mg PO BEDTIME PRN PRN Reason: Insomnia Last Admin: 05/18/21 00:59 Dose: 50 mg Documented by: Vitamin D (Cholecalciferol (Vitamin D3) 25 Mcg Tablet) 25 mcg PO DAILY NEL Last Admin: 05/18/21 08:27 Dose: 25 mcg Documented by: Zolpidem Tartrate (Zolpidem Tartrate 5 Mg Tablet) 5 mg PO BEDTIME PRN PRN Reason: Insomnia Last Admin: 05/17/21 22:56 Dose: 5 mg Documented by: Allergies Allergies Allergy/AdvReac Type Severity Reaction Status Date / Time No Known Allergies Allergy Verified 03/02/21 13:54 Mental Status Exam Mental Status Exam Narrative: Pt is alert and oriented; behavior is cooperative, friendly and calm; patient is not in distress; dressed in casual attire, with purple highlights in her hair and with adequate hygiene; mood is described as ok and affect congruent; eye contact appropriate; Speech is normal rate, volume and prosody and not pressured; no psychomotor agitation/retardation present; thought process is organized, linear, logical and goal directed. Thought content is on getting treatment and otherwise pertinent to relevant topics; some paranoid ideations of house being haunted and AH due to witchcraft but pt is willing to challenge these ideas and responded well to reality testing; no grandiosity; denies any SI/HI. AH; Patients insight and judgment appear relatively intact other than what's mentioned previously. Assessment & Plan Assessment & Plan (1) Schizophrenia: Status: Acute Qualifiers: Schizophrenia type: unspecified Qualified Code(s): F20.9 - Schizophrenia, unspecified Code(s): F20.9 - Schizophrenia, unspecified Assessment and Plan: Schizoaffective disorder remains a rule out. (2) Opioid use disorder, mild, in sustained remission, on maintenance therapy: Status: Acute Code(s): F11.11 - Opioid abuse, in remission Assessment and Plan: IMPRESSION: Patient is a 60-year-old female with history of psychotic symptoms who presents for auditory hallucinations affecting her mood in the face of going off medications few weeks ago. Patient had also has a history of being inconsistent with taking Haldol. Patient meets criteria for schizophrenia, however it is not totally clear that she has paranoid type and will leave as on specified. She has insight and is willing to challenge her thus far held belief that auditory hallucinations are product of witchcraft, more open to this being psychiatric illness. Patient is calm, reasonable and focused on treatment. She agrees to increased dose of Haldol to see if that lowers auditory hallucinations. Financial Advisor reviewed risks and side effects of Haldol and patient agrees to continue. Patient reports that other symptoms such as depressed feelings are product of bothersome auditory hallucinations and she expects them to resolve with AH. Patient's report does sound somewhat like she has recently had a manic episode, however on the unit she is calm, organized and without any manic symptoms at all. Schizoaffective disorder remains a rule out. PLAN: Patient on CV Q 15 minutes checks for safety Increased Haldol to 5 mg at bedtime (was 2 mg b.i.d.) Added Haldol 2 mg p.r.n. q.4 hours for agitation/psychosis/anxiety Will leave other meds as is, patient says has been taking for years Patient educated on: diagnosis Informed Consent: understands Reason for continued inpatient stay Substantial Risk for: med/psych decompensation
[2021-05-18 14:15] VITALS: BP 120/66; PULSE 66
[2021-05-18] MEDS: Buprenorphine/Naloxone 8/2 mg FILM 0.5 FILM SUBLINGUAL (14:16)
--- NOTE | 2021-05-18 16:00 | PC.ADMIT ---
Pt admitted to at on 2014, 05/17/21. Pt was admitted due to AH with commands to hurt people, Pt I would never do this . No SI feels sad . Pt states there are ghosts in her apartment and they are playing her instruments, She tells them to go to another apartment . Pt pleasant cooperative. Pt denies SI/HI. Pt signed a CV.
[2021-05-18 17:36] VITALS: BP 144/50; PULSE 55; RESP 18; TEMP 36.3; O2SAT 94
[2021-05-18] MEDS: Acetaminophen 325 MG TABLET 650 MG PO (19:55)
[2021-05-18] MEDS: HaloperidoL 5 MG TABLET PO (20:46)
[2021-05-18 20:49] VITALS: BP 146/63; PULSE 62
[2021-05-18] MEDS: Buprenorphine/Naloxone 4/1 mg FILM 1 FILM SUBLINGUAL (20:49)
[2021-05-18] MEDS: Zolpidem Tartrate 5 MG TABLET PO (21:34)
[2021-05-19] MEDS: diazePAM 5 MG TABLET PO ×2 (06:00→20:44)
[2021-05-19] MEDS: Acetaminophen 325 MG TABLET 650 MG PO (06:01)
[2021-05-19] MEDS: HaloperidoL 1 MG TABLET 2 MG PO ×3 (06:01→16:23)
[2021-05-19] MEDS: hydrOXYzine HCL 50 MG TABLET PO ×2 (07:42→19:05)
[2021-05-19 07:43] VITALS: BP 136/86; PULSE 63
[2021-05-19] MEDS: Cholecalciferol (Vitamin D3) 25 MCG TABLET PO (07:43)
[2021-05-19] MEDS: cloNIDine HCL 0.1 MG TABLET PO ×3 (07:43→20:36)
[2021-05-19] MEDS: Buprenorphine/Naloxone 8/2 mg FILM 1 FILM SUBLINGUAL (07:44)
--- NOTE | 2021-05-19 09:53 | P.PNPSI_ITS ---
Subjective Subjective Date of Service: 05/19/21 Reason For Visit: suicide thoughts, AH Review of Systems Review of Systems co shoulder pain, says she was on tylenol with codeine- or something that starts with an f Mental Status Exam Mental Status Exam Narrative: Dressed in her own clothes, kempt good eye contact Patient Appearance: Well Grooomed and Appropriate Patient Orientation: Person, Place, Time and Situation Level of Consciousness: Awake Patient Behavior: Talkative, Anxious and Good Eye Contact Mood Description: Depressed and Anxious Affect Description: Labile (mildly - possibly hystrionic) Ability to Follow Directions: Good Speech Pattern: Pressured (mildly) Hallucinations: Auditory Thought Process: Distracted Thought Content: positive for Circumstantial and positive for Suicidal Ideation (no plan) Depressive Symptoms: Increased Anxiety, Diff. Making Decisions and Increased Irritability Abnormal Motor Activity Signs and Symptoms: Hyperactivity and Restlessness Judgement: Fair Diagnostics Vital Signs (24Hr): Vital Signs - 24 hr 05/18/21 14:15 05/18/21 17:36 05/18/21 20:49 Temperature 97.3 F Pulse Rate 66 55 62 Respiratory Rate 18 Blood Pressure 120/66 144/50 H 146/63 H Pulse Oximetry 94 05/19/21 07:43 Temperature Pulse Rate 63 Respiratory Rate Blood Pressure 136/86 Pulse Oximetry Body Mass Index 42.9 Labs Results: 05/16/21 22:32 05/16/21 22:32 Medications Medications Current Medications Generic Name Dose Route Start Last Admin Trade Name Freq PRN Reason Stop Dose Admin Acetaminophen 650 mg 05/17/21 19:41 05/19/21 06:01 Acetaminophen 325 Mg Tablet PO 650 mg Q6H PRN Administration Headache/Pain Mild Scale (1-3) Al Hydroxide/Mg Hydroxide 30 ml 05/17/21 19:41 Magnesium Hydrox/Alum Hydrox 30 Ml Oral.Susp PO Q6H PRN Heartburn/Nausea Al Hydroxide/Mg Hydroxide 30 ml 05/17/21 21:45 Magnesium Hydrox/Alum Hydrox 30 Ml Oral.Susp PO Q6H PRN Heartburn/Nausea Buprenorphine/Naloxone 1 film 05/17/21 09:00 05/19/21 07:44 Buprenorphine/Naloxone 8/2 Mg Film SUBLINGUAL 1 film DAILY NEL Administration Buprenorphine/Naloxone 1 film 05/18/21 21:00 05/18/21 20:49 Buprenorphine/Naloxone 4/1 Mg Film SUBLINGUAL 1 film BID@1400,2100 NEL Administration Cefuroxime Axetil 500 mg 05/17/21 09:00 05/19/21 07:43 Cefuroxime Axetil 500 Mg Tablet PO 05/24/21 08:59 500 mg BID NEL Administration Clonidine HCl 0.1 mg 05/17/21 09:00 05/19/21 07:43 Clonidine Hcl 0.1 Mg Tablet PO 0.1 mg TID NEL Administration Protocol Diazepam 5 mg 05/17/21 07:50 05/19/21 06:00 Diazepam 5 Mg Tablet PO 5 mg TID PRN Administration Anxiety Diclofenac Sodium 75 mg 05/17/21 07:50 05/18/21 14:52 Diclofenac Sodium Delayed Rel 75 Mg Tablet.Dr PO 75 mg BID PRN Administration pain Haloperidol 5 mg 05/18/21 21:00 05/18/21 20:46 Haloperidol 5 Mg Tablet PO 5 mg BEDTIME NEL Administration Haloperidol 2 mg 05/18/21 12:21 05/19/21 06:01 Haloperidol 1 Mg Tablet PO 2 mg Q4H PRN Administration anxiety or AH or agitation Hydroxyzine HCl 50 mg 05/17/21 07:50 05/19/21 07:42 Hydroxyzine Hcl 50 Mg Tablet PO 50 mg Q6H PRN Administration Anxiety Magnesium Hydroxide 30 ml 05/17/21 19:41 Milk Of Magnesia 30 Ml Oral.Susp PO DAILY PRN Constipation Magnesium Hydroxide 30 ml 05/17/21 21:45 Milk Of Magnesia 30 Ml Oral.Susp PO DAILY PRN Constipation Trazodone HCl 50 mg 05/17/21 19:41 05/18/21 00:59 Trazodone Hcl 50 Mg Tablet PO 50 mg BEDTIME PRN Administration Insomnia Vitamin D 25 mcg 05/17/21 09:00 05/19/21 07:43 Cholecalciferol (Vitamin D3) 25 Mcg Tablet PO 25 mcg DAILY NEL Administration Zolpidem Tartrate 5 mg 05/17/21 07:50 05/18/21 21:34 Zolpidem Tartrate 5 Mg Tablet PO 5 mg BEDTIME PRN Administration Insomnia Allergies Allergies Allergy/AdvReac Type Severity Reaction Status Date / Time No Known Allergies Allergy Verified 03/02/21 13:54 Assessment & Plan Assessment & Plan (1) Schizophrenia: Qualifiers: Schizophrenia type: unspecified Qualified Code(s): F20.9 - Schizophrenia, unspecified Status: Acute Code(s): F20.9 - Schizophrenia, unspecified Assessment and Plan: Schizoaffective disorder remains a rule out. (2) Opioid use disorder, mild, in sustained remission, on maintenance therapy: Status: Acute Code(s): F11.11 - Opioid abuse, in remission Assessment and Plan: IMPRESSION: Patient is a 60-year-old female with history of psychotic symptoms who presents for auditory hallucinations affecting her mood in the face of going off medications few weeks ago. Patient had also has a history of being inconsistent with taking Haldol. Patient meets criteria for schizophrenia, however it is not totally clear that she has paranoid type and will leave as on specified. She has insight and is willing to challenge her thus far held belief that auditory hallucinations are product of witchcraft, more open to this being psychiatric illness. Pt seems focused on pain meds today - told her I would look up police patrol officer and there was no tylenol with codeine which wouldn't work with suboxone she is on any way- offered alterative of tylenol pt requests hydrozyzine 50mg am 100mg pm and 50mg qhs Greater than 50% of the session was spent on counseling and/or coordination of care Reason for contiued inpatient stay Substantial Risk for: harm to self and rapid decompensation
[2021-05-19] MEDS: hydrOXYzine HCL 50 MG TABLET 100 MG PO (13:07)
[2021-05-19] MEDS: Buprenorphine/Naloxone 4/1 mg FILM 1 FILM SUBLINGUAL ×2 (13:07→20:35)
[2021-05-19 14:42] VITALS: BP 128/82; PULSE 57
[2021-05-19] MEDS: Diclofenac Sodium Delayed Rel 75 MG TABLET.DR PO (16:23)
[2021-05-19 18:00] VITALS: BP 141/74; PULSE 60; RESP 16; O2SAT 100
[2021-05-19] MEDS: HaloperidoL 5 MG TABLET PO (20:35)
[2021-05-19 20:36] VITALS: BP 136/78; PULSE 86
[2021-05-19] MEDS: Zolpidem Tartrate 5 MG TABLET PO (21:39)
[2021-05-19] MEDS: traZODone HCL 50 MG TABLET PO (22:23)
[2021-05-20] MEDS: HaloperidoL 1 MG TABLET 2 MG PO ×2 (05:53→17:06)
[2021-05-20] MEDS: hydrOXYzine HCL 50 MG TABLET PO ×2 (05:53→20:59)
[2021-05-20 06:00] VITALS: BP 127/79; PULSE 63; TEMP 35.5; O2SAT 97
[2021-05-20] MEDS: Diclofenac Sodium Delayed Rel 75 MG TABLET.DR PO ×2 (06:24→17:03)
[2021-05-20 07:43] VITALS: BP 132/93; PULSE 66
[2021-05-20] MEDS: Cholecalciferol (Vitamin D3) 25 MCG TABLET PO (07:43)
[2021-05-20] MEDS: cloNIDine HCL 0.1 MG TABLET PO ×3 (07:43→20:54)
[2021-05-20] MEDS: Buprenorphine/Naloxone 8/2 mg FILM 1 FILM SUBLINGUAL (07:43)
--- NOTE | 2021-05-20 12:27 | P.PNPSI_ITS ---
Subjective Subjective Date of Service: 05/20/21 Reason For Visit: suicide thoughts, AH Subjective Notes: Conditional Voluntary Healthcare Proxy: No Guardianship: No Medical Problems Affecting Mental Status: Yes (co shoulder pain) Interim History: Pt feels better , denying current si, less ah has recurrently been trying to get pain meds for shoulder- despite being on suboxone Medication Compliance: Yes Side effects from medications: No Attending Groups: Intermittent Review of Systems Review of Systems shoulder pain Mental Status Exam Mental Status Exam Narrative: causally dressed, kempt , fair eye contact Patient Appearance: Well Grooomed and Appropriate Patient Orientation: Person, Place, Time and Situation Level of Consciousness: Awake Patient Behavior: Appropriate Behavior Comments: given up focus on pain meds now focused on dc Mood Description: Calm Affect Description: Calm Patient Cognition Impaired: No Ability to Follow Directions: Good Speech Pattern: Clear Hallucinations: Auditory (says they are less, or less bothersome, does not appear to be responding to internal stimuli) Delusions: Not Present Thought Process: Intact Thought Content: positive for Intact Depressive Symptoms: Muscle Pain (shoulder ) Judgement: Fair Diagnostics Vital Signs (24Hr): Vital Signs - 24 hr 05/19/21 14:42 05/19/21 18:00 05/19/21 20:36 Temperature Pulse Rate 57 60 86 Respiratory Rate 16 Blood Pressure 128/82 141/74 H 136/78 Pulse Oximetry 100 05/20/21 06:00 05/20/21 07:43 Temperature 96 F L Pulse Rate 63 66 Respiratory Rate Blood Pressure 127/79 132/93 H Pulse Oximetry 97 Body Mass Index 42.9 Labs Results: 05/16/21 22:32 05/16/21 22:32 Medications Medications Current Medications Generic Name Dose Route Start Last Admin Trade Name Freq PRN Reason Stop Dose Admin Acetaminophen 975 mg 05/19/21 11:53 Acetaminophen 325 Mg Tablet PO Q4H PRN Headache/Pain Mild Scale (1-3) Al Hydroxide/Mg Hydroxide 30 ml 05/17/21 19:41 Magnesium Hydrox/Alum Hydrox 30 Ml Oral.Susp PO Q6H PRN Heartburn/Nausea Al Hydroxide/Mg Hydroxide 30 ml 05/17/21 21:45 Magnesium Hydrox/Alum Hydrox 30 Ml Oral.Susp PO Q6H PRN Heartburn/Nausea Buprenorphine/Naloxone 1 film 05/17/21 09:00 05/20/21 07:43 Buprenorphine/Naloxone 8/2 Mg Film SUBLINGUAL 1 film DAILY NEL Administration Buprenorphine/Naloxone 1 film 05/18/21 21:00 05/19/21 20:35 Buprenorphine/Naloxone 4/1 Mg Film SUBLINGUAL 1 film BID@1400,2100 NEL Administration Cefuroxime Axetil 500 mg 05/17/21 09:00 05/20/21 07:43 Cefuroxime Axetil 500 Mg Tablet PO 05/24/21 08:59 500 mg BID NEL Administration Clonidine HCl 0.1 mg 05/17/21 09:00 05/20/21 07:43 Clonidine Hcl 0.1 Mg Tablet PO 0.1 mg TID NEL Administration Protocol Diazepam 5 mg 05/17/21 07:50 05/19/21 20:44 Diazepam 5 Mg Tablet PO 5 mg TID PRN Administration Anxiety Diclofenac Sodium 75 mg 05/17/21 07:50 05/20/21 06:24 Diclofenac Sodium Delayed Rel 75 Mg Tablet.Dr PO 75 mg BID PRN Administration pain Haloperidol 5 mg 05/18/21 21:00 05/19/21 20:35 Haloperidol 5 Mg Tablet PO 5 mg BEDTIME NEL Administration Haloperidol 2 mg 05/18/21 12:21 05/20/21 05:53 Haloperidol 1 Mg Tablet PO 2 mg Q4H PRN Administration anxiety or AH or agitation Hydroxyzine HCl 50 mg 05/17/21 07:50 05/20/21 05:53 Hydroxyzine Hcl 50 Mg Tablet PO 50 mg Q6H PRN Administration Anxiety Hydroxyzine HCl 100 mg 05/19/21 14:00 05/19/21 13:07 Hydroxyzine Hcl 50 Mg Tablet PO 100 mg DAILY@1400 NEL Administration Magnesium Hydroxide 30 ml 05/17/21 19:41 Milk Of Magnesia 30 Ml Oral.Susp PO DAILY PRN Constipation Magnesium Hydroxide 30 ml 05/17/21 21:45 Milk Of Magnesia 30 Ml Oral.Susp PO DAILY PRN Constipation Trazodone HCl 50 mg 05/17/21 19:41 05/19/21 22:23 Trazodone Hcl 50 Mg Tablet PO 50 mg BEDTIME PRN Administration Insomnia Vitamin D 25 mcg 05/17/21 09:00 05/20/21 07:43 Cholecalciferol (Vitamin D3) 25 Mcg Tablet PO 25 mcg DAILY NEL Administration Zolpidem Tartrate 5 mg 05/17/21 07:50 05/19/21 21:39 Zolpidem Tartrate 5 Mg Tablet PO 5 mg BEDTIME PRN Administration Insomnia Allergies Allergies Allergy/AdvReac Type Severity Reaction Status Date / Time No Known Allergies Allergy Verified 03/02/21 13:54 Assessment & Plan Assessment & Plan (1) Schizophrenia: Qualifiers: Schizophrenia type: unspecified Qualified Code(s): F20.9 - Schizophr enia, unspecified Status: Acute Code(s): F20.9 - Schizophrenia, unspecified Assessment and Plan: Schizoaffective disorder remains a rule out. (2) Opioid use disorder, mild, in sustained remission, on maintenance therapy: Status: Acute Code(s): F11.11 - Opioid abuse, in remission Assessment and Plan: IMPRESSION: Patient is a 60-year-old female with history of psychotic symptoms who presents for auditory hallucinations affecting her mood in the face of going off medications few weeks ago. Patient had also has a history of being inconsistent with taking Haldol. Patient meets criteria for schizophrenia, however it is not totally clear that she has paranoid type and will leave as on specified. She h as insight and is willing to challenge her thus far held belief that auditory hallucinations are product of witchcraft, more open to this being psychiatric illness. Now focused on dc such that she can take meds she has at home for shoulder pain? She says pending cortisone injection Reports break with with gf who is moving out- says it is fine. Greater than 50% of the session was spent on counseling and/or coordination of care Reason for contiued inpatient stay Substantial Risk for: rapid decompensation
[2021-05-20] MEDS: Buprenorphine/Naloxone 4/1 mg FILM 1 FILM SUBLINGUAL ×2 (13:22→20:54)
[2021-05-20] MEDS: diazePAM 5 MG TABLET PO ×2 (13:22→21:51)
[2021-05-20 13:23] VITALS: BP 138/80; PULSE 67
[2021-05-20] MEDS: hydrOXYzine HCL 50 MG TABLET 100 MG PO (13:23)
[2021-05-20 18:00] VITALS: BP 122/76; PULSE 62; RESP 16; TEMP 36.2; O2SAT 98
[2021-05-20 20:54] VITALS: BP 134/78; PULSE 84
[2021-05-20] MEDS: traZODone HCL 50 MG TABLET PO (20:54)
[2021-05-20] MEDS: HaloperidoL 5 MG TABLET PO (20:54)
[2021-05-20] MEDS: Zolpidem Tartrate 5 MG TABLET PO (21:51)
[2021-05-21] MEDS: Diclofenac Sodium Delayed Rel 75 MG TABLET.DR PO (04:59)
[2021-05-21 06:00] VITALS: BP 132/72; PULSE 67; TEMP 36.7
[2021-05-21 09:01] VITALS: BP 122/82; PULSE 75
[2021-05-21] MEDS: cloNIDine HCL 0.1 MG TABLET PO ×3 (09:01→21:15)
[2021-05-21] MEDS: Cholecalciferol (Vitamin D3) 25 MCG TABLET PO (09:01)
[2021-05-21] MEDS: Buprenorphine/Naloxone 8/2 mg FILM 1 FILM SUBLINGUAL (09:02)
[2021-05-21] MEDS: hydrOXYzine HCL 50 MG TABLET PO ×3 (09:20→20:12)
[2021-05-21] MEDS: diazePAM 5 MG TABLET PO ×3 (09:20→22:47)
--- NOTE | 2021-05-21 12:17 | P.PNPSI_ITS ---
Subjective Subjective Date of Service: 05/21/21 Reason For Visit: suicide thoughts, AH Interim History: Patient reports that auditory hallucinations remain however they are better than on admission. She still feels depressed; she had some minimal SI on Friday but says it was only due to another peer talking about it constantly. She denies any SI currently and reiterates she would never self- harm. Patient had asked covering provider to schedule hydroxyzine at 14:00 every day. Patient explained to casualty underwriter there is a specific reason she wants to distract herself from around 14:00 to 21:00 but said it was private and did not want to disclose; at home during this time she plays music and nstruments to distract herself but here on the unit she is hoping that hydroxyzine will help. Patient agrees to increasing Haldol dose to scheduling 2 mg in the morning since she has been taking at least 2 PRNs per day. She anticipates that if auditory hallucinations resolve, all depression will to. She does not however want to take any other additional medication for depression. Patient shares that she remains convinced that this is a psychiatric illness and not witchcraft. Denies medication side effects Medication Compliance: Yes Side effects from medications: No Attending Groups: Yes Mental Status Exam Mental Status Exam Narrative: Pt is alert and oriented; behavior is cooperative, friendly and calm; patient is not in distress; dressed in casual attire, with purple colored hair and good hygiene; mood is described as depressed and affect congruent; eye contact appropriate; Speech is normal rate, volume and prosody and not pressured; no psychomotor agitation/retardation present; thought process is organized, linear, logical and goal directed. Thought content is on getting treatment and otherwise pertinent to relevant topics; no paranoid ideations as she believes that AH are due to psychiatric illness; no grandiosity; denies any SI/HI. AH; Patients insight and judgment appear intact. Diagnostics Vital Signs (24Hr): Vital Signs - 24 hr 05/20/21 13:23 05/20/21 18:00 05/20/21 20:54 Temperature 97.1 F Pulse Rate 67 62 84 Respiratory Rate 16 Blood Pressure 138/80 122/76 134/78 Pulse Oximetry 98 05/21/21 06:00 05/21/21 09:01 Temperature 98.0 F Pulse Rate 67 75 Respiratory Rate Blood Pressure 132/72 122/82 Pulse Oximetry Body Mass Index 42.9 Labs Results: 05/16/21 22:32 05/16/21 22:32 Medications Medications Current Medications Generic Name Dose Route Start Last Admin Trade Name Loyd PRN Reason Stop Dose Admin Acetaminophen 975 mg 05/19/21 11:53 Acetaminophen 325 Mg Tablet PO Q4H PRN Headache/Pain Mild Scale (1-3) Al Hydroxide/Mg Hydroxide 30 ml 05/17/21 19:41 Magnesium Hydrox/Alum Hydrox 30 Ml Oral.Susp PO Q6H PRN Heartburn/Nausea Al Hydroxide/Mg Hydroxide 30 ml 05/17/21 21:45 Magnesium Hydrox/Alum Hydrox 30 Ml Oral.Susp PO Q6H PRN Heartburn/Nausea Buprenorphine/Naloxone 1 film 05/17/21 09:00 05/21/21 09:02 Buprenorphine/Naloxone 8/2 Mg Film SUBLINGUAL 1 film DAILY NEL Administration Buprenorphine/Naloxone 1 film 05/18/21 21:00 05/20/21 20:54 Buprenorphine/Naloxone 4/1 Mg Film SUBLINGUAL 1 film BID@1400,2100 NEL Administration Cefuroxime Axetil 500 mg 05/17/21 09:00 05/21/21 09:02 Cefuroxime Axetil 500 Mg Tablet PO 05/24/21 08:59 500 mg BID NEL Administration Clonidine HCl 0.1 mg 05/17/21 09:00 05/21/21 09:01 Clonidine Hcl 0.1 Mg Tablet PO 0.1 mg TID NEL Administration Protocol Diazepam 5 mg 05/17/21 07:50 05/21/21 09:20 Diazepam 5 Mg Tablet PO 5 mg TID PRN Administration Anxiety Diclofenac Sodium 75 mg 05/17/21 07:50 05/21/21 04:59 Diclofenac Sodium Delayed Rel 75 Mg Tablet.Dr PO 75 mg BID PRN Administration pain Haloperidol 5 mg 05/18/21 21:00 05/20/21 20:54 Haloperidol 5 Mg Tablet PO 5 mg BEDTIME NEL Administration Haloperidol 2 mg 05/18/21 12:21 05/20/21 17:06 Haloperidol 1 Mg Tablet PO 2 mg Q4H PRN Administration anxiety or AH or agitation Hydroxyzine HCl 50 mg 05/17/21 07:50 05/21/21 09:20 Hydroxyzine Hcl 50 Mg Tablet PO 50 mg Q6H PRN Administration Anxiety Hydroxyzine HCl 100 mg 05/19/21 14:00 05/20/21 13:23 Hydroxyzine Hcl 50 Mg Tablet PO 100 mg DAILY@1400 NEL Administration Magnesium Hydroxide 30 ml 05/17/21 19:41 Milk Of Magnesia 30 Ml Oral.Susp PO DAILY PRN Constipation Magnesium Hydroxide 30 ml 05/17/21 21:45 Milk Of Magnesia 30 Ml Oral.Susp PO DAILY PRN Constipation Trazodone HCl 50 mg 05/17/21 19:41 05/20/21 20:54 Trazodone Hcl 50 Mg Tablet PO 50 mg BEDTIME PRN Administration Insomnia Vitamin D 25 mcg 05/17/21 09:00 05/21/21 09:01 Cholecalciferol (Vitamin D3) 25 Mcg Tablet PO 25 mcg DAILY NEL Administration Zolpidem Tartrate 5 mg 05/17/21 07:50 05/20/21 21:51 Zolpidem Tartrate 5 Mg Tablet PO 5 mg BEDTIME PRN Administration Insomnia Allergies Allergies Allergy/AdvReac Type Severity Reaction Status Date / Time No Known Allergies Allergy Verified 03/02/21 13:54 Assessment & Plan Assessment & Plan (1) Schizophrenia: Qualifiers: Schizophrenia type: unspecified Qualified Code(s): F20.9 - Schizophrenia, unspecified Status: Acute Code(s): F20.9 - Schizophrenia, unspecified Assessment and Plan: Schizoaffective disorder remains a rule out. (2) Opioid use disorder, mild, in sustained remission, on maintenance therapy: Status: Acute Code(s): F11.11 - Opioid abuse, in remission Assessment and Plan: IMPRESSION: Patient is a 60-year-old female with history of psychotic symptoms who presents for auditory hallucinations affecting her mood in the face of going off medications few weeks ago. Patient had also has a history of being inconsistent with taking Haldol. Patient meets criteria for schizophrenia, however it is not totally clear that she has paranoid type and will leave as on specified. She has insight and is willing to challenge her thus far held belief that auditory hallucinations are product of witchcraft, more open to this being psychiatric illness. Patient's auditory hallucinations have decreased but do remain. She still is depressed but denies SI. Haldol seems to have helped some and she agrees to increased scheduled dose with 2 mg in the morning because she reports when she takes Haldol 2 mg p.r.n. AH disappears. Patient with improved insight, and believes AH is due to psychiatric illness, not witchcraft. Reports break with with gf who is moving out- says it is fine. PLAN: Patient on CV Q 15 minutes checks for safety Continue Haldol to 5 mg at bedtime (was 2 mg b.i.d.) Start Haldol 2 mg in the morning scheduled Continue Haldol 2 mg p.r.n. q.4 hours for agitation/psychosis/anxiety She says pending cortisone injection for chronic shoulder pain Hydroxyzine 100 mg started at 14:00 in the afternoon ostensibly to help the patient avoid unpleasant memory Will leave other meds as is, patient says has been taking for years Greater than 50% of the session was spent on counseling and/or coordination of care Reason for contiued inpatient stay Substantial Risk for: rapid decompensation
[2021-05-21] MEDS: hydrOXYzine HCL 50 MG TABLET 100 MG PO (13:25)
[2021-05-21] MEDS: Buprenorphine/Naloxone 4/1 mg FILM 1 FILM SUBLINGUAL ×2 (13:25→20:15)
[2021-05-21 14:41] VITALS: BP 127/75; PULSE 73
[2021-05-21] MEDS: Acetaminophen 325 MG TABLET 975 MG PO (14:46)
[2021-05-21 18:00] VITALS: BP 129/60; PULSE 65; TEMP 36
[2021-05-21] MEDS: HaloperidoL 1 MG TABLET 2 MG PO (18:28)
[2021-05-21 21:15] VITALS: BP 134/60
[2021-05-21] MEDS: Zolpidem Tartrate 5 MG TABLET PO (22:47)
[2021-05-22] MEDS: traZODone HCL 50 MG TABLET PO ×3 (03:22→21:48)
[2021-05-22] MEDS: Diclofenac Sodium Delayed Rel 75 MG TABLET.DR PO ×2 (05:34→18:14)
[2021-05-22] MEDS: hydrOXYzine HCL 50 MG TABLET PO (06:54)
[2021-05-22] MEDS: HaloperidoL 1 MG TABLET 2 MG PO ×3 (06:54→15:54)
[2021-05-22 08:53] VITALS: BP 123/58; PULSE 72
[2021-05-22] MEDS: cloNIDine HCL 0.1 MG TABLET PO ×3 (08:53→20:14)
[2021-05-22] MEDS: Cholecalciferol (Vitamin D3) 25 MCG TABLET PO (08:54)
[2021-05-22] MEDS: Buprenorphine/Naloxone 8/2 mg FILM 1 FILM SUBLINGUAL (08:55)
[2021-05-22] MEDS: diazePAM 5 MG TABLET PO ×2 (09:08→18:14)
[2021-05-22] MEDS: hydrOXYzine HCL 50 MG TABLET 100 MG PO (13:36)
[2021-05-22] MEDS: Buprenorphine/Naloxone 4/1 mg FILM 1 FILM SUBLINGUAL ×2 (13:37→20:14)
[2021-05-22 14:50] VITALS: BP 130/66; PULSE 64
--- NOTE | 2021-05-22 15:41 | P.PNPSI_ITS ---
Subjective Subjective Date of Service: 05/22/21 Reason For Visit: suicide thoughts, AH Interim History: Patient reports that today is the 1st day auditory hallucinations are very low and that ?something is working right. Patient's mood is better and she denies any SI. Last night she also slept fairly well for the 1st time in a while. Patient is anxious however that auditory hallucinat ions will return; she does not want to go up higher on Haldol, worried about the future of side effects, but also feels that making sure her auditory hallucinations are tolerable is of primary importance as it significantly affects her mood. Patient asked to remain another day to make sure that AH remains minimal to which assembly instructions writer agrees is prudent. Discussed use of Ambien versus trazodone. Patient found trazodone helpful when she woke up after Ambien wore off; assembly instructions writer encouraged patient to try trazodone only to see if affective has Ambien is a less preferable choice of medication given its side effect profile. Pt will consider, but says she's been on Ambien a long time and is hesitant to make any changes in light of improved AH and mood. Medication Compliance: Yes Side effects from medications: No Attending Groups: Yes Mental Status Exam Mental Status Exam Narrative: Pt is alert and oriented; behavior is cooperative, friendly and calm; patient is not in distress; dressed in casual attire, with purple colored hair and good hygiene; mood is described as ok...better and affect congruent; eye contact appropriate; Speech is normal rate, volume and prosody and not pressured; no psychomotor agitation/retardation present; thought process is organized, linear, logical and goal directed. Thought content is on getting treatment and otherwise pertinent to relevant topics; no paranoid ideations as she believes that AH are due to psychiatric illness; no grandiosity; denies any SI/HI. AH; Patients insight and judgment appear intact. Diagnostics Vital Signs (24Hr): Vital Signs - 24 hr 05/21/21 18:00 05/21/21 21:15 05/22/21 08:53 Temperature 96.8 F Pulse Rate 65 72 Blood Pressure 129/60 134/60 123/58 L 05/22/21 14:50 Temperature Pulse Rate 64 Blood Pressure 130/66 Body Mass Index 42.9 Labs Results: 05/16/21 22:32 05/16/21 22:32 Medications Medications Current Medications Generic Name Dose Route Start Last Admin Trade Name Ravinderq PRN Reason Stop Dose Admin Acetaminophen 975 mg 05/19/21 11:53 05/21/21 14:46 Acetaminophen 325 Mg Tablet PO 325 mg Q4H PRN Administration Headache/Pain Mild Scale (1-3) Al Hydroxide/Mg Hydroxide 30 ml 05/17/21 19:41 Magnesium Hydrox/Alum Hydrox 30 Ml Oral.Susp PO Q6H PRN Heartburn/Nausea Al Hydroxide/Mg Hydroxide 30 ml 05/17/21 21:45 Magnesium Hydrox/Alum Hydrox 30 Ml Oral.Susp PO Q6H PRN Heartburn/Nausea Buprenorphine/Naloxone 1 film 05/17/21 09:00 05/22/21 08:55 Buprenorphine/Naloxone 8/2 Mg Film SUBLINGUAL 1 film DAILY NEL Administration Buprenorphine/Naloxone 1 film 05/18/21 21:00 05/22/21 13:37 Buprenorphine/Naloxone 4/1 Mg Film SUBLINGUAL 1 film BID@1400,2100 NEL Administration Cefuroxime Axetil 500 mg 05/17/21 09:00 05/22/21 08:53 Cefuroxime Axetil 500 Mg Tablet PO 05/24/21 08:59 500 mg BID NEL Administration Clonidine HCl 0.1 mg 05/17/21 09:00 05/22/21 14:50 Clonidine Hcl 0.1 Mg Tablet PO 0.1 mg TID ENL Administration Protocol Diazepam 5 mg 05/17/21 07:50 05/22/21 09:08 Diazepam 5 Mg Tablet PO 5 mg TID PRN Administration Anxiety Diclofenac Sodium 75 mg 05/17/21 07:50 05/22/21 05:34 Diclofenac Sodium Delayed Rel 75 Mg Tablet.Dr PO 75 mg BID PRN Administration pain Haloperidol 5 mg 05/18/21 21:00 05/21/21 21:00 Haloperidol 5 Mg Tablet PO Not Given BEDTIME NEL Haloperidol 2 mg 05/18/21 12:21 05/22/21 06:54 Haloperidol 1 Mg Tablet PO 2 mg Q4H PRN Administration anxiety or AH or agitation Haloperidol 2 mg 05/22/21 09:00 05/22/21 09:00 Haloperidol 1 Mg Tablet PO 2 mg DAILY NEL Administration Hydroxyzine HCl 50 mg 05/17/21 07:50 05/22/21 06:54 Hydroxyzine Hcl 50 Mg Tablet PO 50 mg Q6H PRN Administration Anxiety Hydroxyzine HCl 100 mg 05/19/21 14:00 05/22/21 13:36 Hydroxyzine Hcl 50 Mg Tablet PO 100 mg DAILY@1400 NEL Administration Magnesium Hydroxide 30 ml 05/17/21 19:41 Milk Of Magnesia 30 Ml Oral.Susp PO DAILY PRN Constipation Magnesium Hydroxide 30 ml 05/17/21 21:45 Milk Of Magnesia 30 Ml Oral.Susp PO DAILY PRN Constipation Trazodone HCl 50 mg 05/17/21 19:41 05/22/21 03:22 Trazodone Hcl 50 Mg Tablet PO 50 mg BEDTIME PRN Administration Insomnia Vitamin D 25 mcg 05/17/21 09:00 05/22/21 08:54 Cholecalciferol (Vitamin D3) 25 Mcg Tablet PO 25 mcg DAILY NEL Administration Zolpidem Tartrate 5 mg 05/17/21 07:50 05/21/21 22:47 Zolpidem Tartrate 5 Mg Tablet PO 5 mg BEDTIME PRN Administration Insomnia Allergies Allergies Allergy/AdvReac Type Severity Reaction Status Date / Time No Known Allergies Allergy Verified 03/02/21 13:54 Assessment & Plan Assessment & Plan (1) Schizophrenia: Qualifiers: Schizophrenia type: unspecified Qualified Code(s): F20.9 - Schizophrenia, unspecified Status: Acute Code(s): F20.9 - Schizophrenia, unspecified Assessment and Plan: Schizoaffective disorder remains a rule out. (2) Opioid use disorder, mild, in sustained remission, on maintenance therapy: Status: Acute Code(s): F11.11 - Opioid abuse, in remission Assessment and Plan: IMPRESSION: Patient is a 60-year-old female with history of psychotic symptoms who presents for auditory hallucinations affecting her mood in the face of going off medications few weeks ago. Patient had also has a history of being inconsistent with taking Haldol. Patient meets criteria for schizophrenia, however it is not totally clear that she has paranoid type and will leave as on specified. She has insight and is willing to challenge her thus far held belief that auditory hallucinations are product of witchcraft, more open to this being psychiatric illness. Patient's auditory hallucinations have decreased but do remain. She still is depressed but denies SI. Haldol seems to have helped some and she agrees to increased scheduled dose with 2 mg in the morning because she reports when she takes Haldol 2 mg p.r.n. AH disappears. Patient with improved insight, and lauri rinaldi AH is due to psychiatric illness, not witchcraft. Reports break with with gf who is moving out- says it is fine. It appears that Haldol at an increased dose is effective as today patient repo rts auditory hallucinations are minimal. Given that this is the 1st day that patient is finding relief with improved mood, and given that AH have been significantly bothersome and trigger worsening depression and suicidal ideation, assembly instructions writer finds it mccall for patient to remain another day in order to further demonstrate her stability. Hopefully there will not be need to increase Haldol further. PLAN: Patient on CV Q 15 minutes checks for safety Continue Haldol to 5 mg at bedtime (was 2 mg b.i.d.) Start Haldol 2 mg in the morning scheduled Continue Haldol 2 mg p.r.n. q.4 hours for agitation/psychosis/anxiety She says pending cortisone injection for chronic shoulder pain Hydroxyzine 100 mg started at 14:00 in the afternoon ostensibly to help the patient avoid unpleasant memory Will leave other meds as is, patient says has been taking for years Greater than 50% of the session was spent on counseling and/or coordination of care Reason for contiued inpatient stay Substantial Risk for: med/psych decompensation
[2021-05-22 18:00] VITALS: BP 121/72; PULSE 69; TEMP 35.9
[2021-05-22 20:14] VITALS: BP 128/85; PULSE 73
[2021-05-22] MEDS: HaloperidoL 5 MG TABLET PO (20:14)
[2021-05-22] MEDS: Zolpidem Tartrate 5 MG TABLET PO (21:48)
[2021-05-23] MEDS: Diclofenac Sodium Delayed Rel 75 MG TABLET.DR PO (02:57)
[2021-05-23] MEDS: HaloperidoL 1 MG TABLET 2 MG PO ×2 (02:58→07:52)
[2021-05-23] MEDS: traZODone HCL 50 MG TABLET PO (02:58)
[2021-05-23 06:00] VITALS: BP 141/63; PULSE 76; RESP 17; TEMP 35.8; O2SAT 97
[2021-05-23] MEDS: Acetaminophen 325 MG TABLET 975 MG PO (06:08)
[2021-05-23 07:53] VITALS: BP 129/59; PULSE 66
[2021-05-23] MEDS: Cholecalciferol (Vitamin D3) 25 MCG TABLET PO (07:53)
[2021-05-23] MEDS: cloNIDine HCL 0.1 MG TABLET PO (07:53)
[2021-05-23] MEDS: Buprenorphine/Naloxone 8/2 mg FILM 1 FILM SUBLINGUAL (07:54)
[2021-05-23] MEDS: diazePAM 5 MG TABLET PO (07:58)
--- NOTE | 2021-05-23 10:56 | P.PNPSI_ITS ---
Subjective Subjective Date of Service: 05/23/21 Reason For Visit: suicide thoughts, AH Interim History: Patient reports she remains with very minimal auditory hallucinations; she reports her mood is significantly better and denies depression or any SI. Patient says she feels ready to go today. She says ?I am stable ? and ?I am ready to try this out on my own at home. ? Patient would like to have scripts for trazodone since she wakes up early sometimes and hydroxyzine which helps her be calm in the afternoon Investigation Lieutenant agrees patient is stable and is not at imminent risk for harm to self or others. Request for discharge honored. Mental Status Exam Mental Status Exam Narrative: Pt is alert and oriented; behavior is cooperative, friendly and calm; patient is not in distress; dressed in casual attire, with purple colored hair and good hygiene; mood is described as stable and affect congruent; eye contact appropriate; Speech is normal rate, volume and prosody and not pressured ; no psychomotor agitation/retardation present; thought process is organized, linear, logical and goal directed. Thought content is on getting treatment and otherwise pertinent to relevant topics; no paranoid ideations as she believes that AH are due to psychiatric illness; no grandiosity; denies any SI/HI. Minimal and ignorable AH; Patients insight and judgment appear intact. Diagnostics Vital Signs (24Hr): Vital Signs - 24 hr 05/22/21 14:50 05/22/21 18:00 05/22/21 20:14 Temperature 96.7 F L Pulse Rate 64 69 73 Respiratory Rate Blood Pressure 130/66 121/72 128/85 Pulse Oximetry 05/23/21 06:00 05/23/21 07:53 Temperature 96.5 F L Pulse Rate 76 66 Respiratory Rate 17 Blood Pressure 141/63 H 129/59 L Pulse Oximetry 97 Body Mass Index 42.9 Labs Results: 05/16/21 22:32 05/16/21 22:32 Medications Medications Current Medications Generic Name Dose Route Start Last Admin Trade Name Freq PRN Reason Stop Dose Admin Acetaminophen 975 mg 05/19/21 11:53 05/23/21 06:08 Acetaminophen 325 Mg Tablet PO 325 mg Q4H PRN Administration Headache/Pain Mild Scale (1-3) Al Hydroxide/Mg Hydroxide 30 ml 05/17/21 19:41 Magnesium Hydrox/Alum Hydrox 30 Ml Oral.Susp PO Q6H PRN Heartburn/Nausea Al Hydroxide/Mg Hydroxide 30 ml 05/17/21 21:45 Magnesium Hydrox/Alum Hydrox 30 Ml Oral.Susp PO Q6H PRN Heartburn/Nausea Buprenorphine/Naloxone 1 film 05/17/21 09:00 05/23/21 07:54 Buprenorphine/Naloxone 8/2 Mg Film SUBLINGUAL 1 film DAILY NEL Administration Buprenorphine/Naloxone 1 film 05/18/21 21:00 05/22/21 20:14 Buprenorphine/Naloxone 4/1 Mg Film SUBLINGUAL 1 film BID@1400,2100 NEL Administration Cefuroxime Axetil 500 mg 05/17/21 09:00 05/23/21 07:53 Cefuroxime Axetil 500 Mg Tablet PO 05/24/21 08:59 500 mg BID NEL Administration Clonidine HCl 0.1 mg 05/17/21 09:00 05/23/21 07:53 Clonidine Hcl 0.1 Mg Tablet PO 0.1 mg TID NEL Administration Protocol Diazepam 5 mg 05/17/21 07:50 05/23/21 07:58 Diazepam 5 Mg Tablet PO 5 mg TID PRN Administration Anxiety Diclofenac Sodium 75 mg 05/17/21 07:50 05/23/21 02:57 Diclofenac Sodium Delayed Rel 75 Mg Tablet.Dr PO 75 mg BID PRN Administration pain Haloperidol 5 mg 05/18/21 21:00 05/22/21 20:14 Haloperidol 5 Mg Tablet PO 5 mg BEDTIME NEL Administration Haloperidol 2 mg 05/18/21 12:21 05/23/21 02:58 Haloperidol 1 Mg Tablet PO 2 mg Q4H PRN Administration anxiety or AH or agitation Haloperidol 2 mg 05/22/21 09:00 05/23/21 07:52 Haloperidol 1 Mg Tablet PO 2 mg DAILY NEL Administration Hydroxyzine HCl 50 mg 05/17/21 07:50 05/22/21 06:54 Hydroxyzine Hcl 50 Mg Tablet PO 50 mg Q6H PRN Administration Anxiety Hydroxyzine HCl 100 mg 05/19/21 14:00 05/22/21 13:36 Hydroxyzine Hcl 50 Mg Tablet PO 100 mg DAILY@1400 NEL Administration Magnesium Hydroxide 30 ml 05/17/21 19:41 Milk Of Magnesia 30 Ml Oral.Susp PO DAILY PRN Constipation Magnesium Hydroxide 30 ml 05/17/21 21:45 Milk Of Magnesia 30 Ml Oral.Susp PO DAILY PRN Constipation Trazodone HCl 50 mg 05/17/21 19:41 05/23/21 02:58 Trazodone Hcl 50 Mg Tablet PO 50 mg BEDTIME PRN Administration Insomnia Vitamin D 25 mcg 05/17/21 09:00 05/23/21 07:53 Cholecalciferol (Vitamin D3) 25 Mcg Tablet PO 25 mcg DAILY NEL Administration Zolpidem Tartrate 5 mg 05/17/21 07:50 05/22/21 21:48 Zolpidem Tartrate 5 Mg Tablet PO 5 mg BEDTIME PRN Administration Insomnia Allergies Allergies Allergy/AdvReac Type Severity Reaction Status Date / Time No Known Allergies Allergy Verified 03/02/21 13:54 Assessment & Plan Assessment & Plan (1) Schizophrenia: Qualifiers: Schizophrenia type: unspecified Qualified Code(s): F20.9 - Schizophrenia, unspecified Status: Acute Code(s): F20.9 - Schizophrenia, unspecified Assessment and Plan: Schizoaffective disorder remains a rule out. (2) Opioid use disorder, mild, in sustained remission, on maintenance therapy: Status: Acute Code(s): F11.11 - Opioid abuse, in remission Assessment and Plan: IMPRESSION: Patient is a 60-year-old female with history of psychotic symptoms who presents for auditory hallucinations affecting her mood in the face of going off medications few weeks ago. Patient had also has a history of being inconsistent with taking Haldol. Patient meets criteria for schizophrenia, however it is not totally clear that she has paranoid type and will leave as on specified. She has insight and is willing to challenge her thus far held belief that auditory hallucinations are product of witchcraft, more open to this being psychiatric illness. Patient's auditory hallucinations have decreased but do remain. She still is depressed but denies SI. Haldol seems to have helped some and she agrees to increased scheduled dose with 2 mg in the morning because she reports when she takes Haldol 2 mg p.r.n. AH disappears. Patient with improved insight, and believes AH is due to psychiatric illness, not witchcraft. Reports break with with gf who is moving out- says it is fine. It appears that Haldol at an increased dose is effective as today patient reports auditory hallucinations are minimal and tolerable. Patient remains stable, is with positive mood and future oriented, without any SI. She says she feels ready for discharge. Investigation Lieutenant agrees patient is stable and is not at imminent risk for harm to self or others. Request for discharge honored. Patient reports to real estate underwriter she does not need refills for other home medications PLAN: Okay for discharge Greater than 50% of the session was spent on counseling and/or coordination of care Reason for contiued inpatient stay Substantial Risk for: stable for discharge
--- NOTE | 2021-05-23 11:21 | P.DS_ITS ---
DS: Providers Provider Date of Service: 05/23/21 Date of admission: 05/17/21 19:41 Date of discharge: 05/23/21 Primary care physician: Unknown Physician Attending physician on admission: Nima Mcguire Attending physician on discharge: Nima Mcguire DS: Diagnosis Discharge Diagnosis (1) Opioid use disorder, mild, in sustained remission, on maintenance therapy: Status: Chronic (2) Schizoaffective disorder, depressive type: Status: Chronic Problem details: in full remission (3) Anxiety: Status: Chronic DS: Medications Discharge Medications Home Medications: Home Medications Medication Instructions Recorded Confirmed buprenorphine-naloxone [Suboxone] 2 strip SUBLINGUAL DAILY 05/17/21 05/17/21 cholecalciferol (vitamin D3) 1 tab PO DAILY 05/17/21 05/17/21 [Vitamin D3] clonidine HCl 1 tab PO TID 05/17/21 05/17/21 diazepam 5 mg PO DIRECTED PRN 05/17/21 05/17/21 diclofenac sodium 1 tab PO BID PRN 05/17/21 05/17/21 zolpidem 1 tab PO BEDTIME PRN 05/17/21 05/17/21 Previous Rx's Medication Instructions Recorded haloperidol 2 mg PO DAILY #30 tab 05/23/21 haloperidol 5 mg PO BEDTIME 30 Days #30 tab 05/23/21 hydroxyzine pamoate 50 mg PO Q6H PRN 30 Days #100 cap 05/23/21 trazodone 50 mg PO BEDTIME PRN 30 Days #30 05/23/21 tab Discharge Plan Discharge Patient Disposition: Home, Self-Care Discharge Diagnosis: Schizoaffective disorder, depressed type Referrals: Eyal Tristan (psychiatry) [Other] - 06/20/21 4:00 pm (This appointment is via Telehealth) Louis Little (therapy) [Other] - 05/24/21 10:30 am (This appointment is via Telehealth) Physician,Unknown [Primary Care Provider] - 1 Week Discharge Medications: New trazodone 50 mg Tablet 50 mg PO BEDTIME PRN (Reason: Insomnia) 30 Days Qty: 30 RF: 0 haloperidol 5 mg Tablet 5 mg PO BEDTIME 30 Days Qty: 30 RF: 0 haloperidol 2 mg tablet 2 mg PO DAILY Qty: 30 RF: 0 Continued zolpidem 10 mg tablet 1 tab PO BEDTIME PRN (Reason: Insomnia) RF: 0 cholecalciferol (vitamin D3) [Vitamin D3] 25 mcg (1,000 unit) tablet 1 tab PO DAILY RF: 0 clonidine HCl 0.1 mg tablet 1 tab PO TID RF: 0 diclofenac sodium 75 mg tablet,delayed release (DR/EC) 1 tab PO BID PRN (Reason: pain) RF: 0 diazepam 5 mg tablet 5 mg PO DIRECTED PRN (Reason: Anxiety) RF: 0 buprenorphine-naloxone [Suboxone] 8-2 mg film 2 strip sublingual DAILY RF: 0 Changed hydroxyzine pamoate 50 mg capsule 50 mg PO Q6H PRN (Reason: Anxiety) 30 Days Qty: 100 RF: 0 Discontinued haloperidol 1 mg tablet 2 tab PO Q12H RF: 0 Discharge Orders: Discharge Order (Routine); Ordered 05/23/21 Ordered By: Nima Mcguire Diet: regular diet Activity on Discharge: As tolerated Stand Alone Forms: Patient Portal Discharge page Care Plan Goals: Maintain mood and safe behaviors Take medications as prescribed Continue to pursue sobriety Practice coping skills Continue with outpatient providers and reach out to them as needed Health Concerns: Mood instability and auditory hallucinations chronic shoulder pain Plan of Treatment: Follow up with your PCP and psychiatric provider regarding above concerns Take medications as prescribed Assessment: Risk assessment at time of discharge: Patient has been observed closely by nursing and unit staff throughout admission; patient has not engaged in any behaviors that suggest dangerousness to self or others and has demonstrated appropriate behaviors and impulse control. Patient was interviewed prior to discharge and found to be fully oriented and without any SI or HI. Patient has insight and demonstrates good judgment in terms of wanting to pursue treatment. Patient is not in imminent risk of harm to self or others and has a safety plan that includes presenting to the closest ER or calling 911 if feeling unsafe. Mental Status Exam Mental Status Exam Narrative: Pt is alert and oriented; behavior is cooperative, friendly and calm; patient is not in distress; dressed in casual attire, with purple colored hair and good hygiene; mood is described as stable and affect congruent; eye contact appropriate; Speech is normal rate, volume and prosody and not pressured; no psychomotor agitation/retardation present; thought process is organized, linear, logical and goal directed. Thought content is on getting treatment and otherwise pertinent to relevant topics; no paranoid ideations as she believes that AH are due to psychiatric illness; no grandiosity; denies any SI/HI. Minimal and ignorable AH; Patients insight and judgment appear intact. Data Data Completed and Pending Completed studies during hospitalization [Text1]: 05/16/21 05/16/21 05/16/21 22:32 22:32 22:32 WBC 6.6 RBC 3.86 L Hgb 11.5 L Hct 34.9 L MCV 90.4 MCH 29.8 MCHC 33.0 RDW 14.0 Plt Count 220 MPV 10.7 Immature Gran % (Auto) 0.2 Neut % (Auto) 53.3 Lymph % (Auto) 32.0 [place] % (Auto) 9.7 Eos % (Auto) 4.2 H Baso % (Auto) 0.6 Lymph # (Auto) 2.1 [place] # (Auto) 0.6 Eos # (Auto) 0.3 Baso # (Auto) 0.0 Abs Immat Gran (auto) 0.01 Absolute Neuts (auto) 3.5 Absolute Nucleated RBC 0.000 Nucleated RBC % (auto) 0.0 Sodium 142 Potassium 4.4 Chloride 107 Carbon Dioxide 28 Anion Gap 11 L BUN 19 H Creatinine 0.99 Estim Creat Clear Calc 76.4 Estimated GFR 58 Random Glucose 89 Calcium 9.5 Total Bilirubin 0.4 AST 23 ALT 16 Alkaline Phosphatase 56 Total Protein 6.8 Albumin 4.4 Urine Color Urine Appearance Urine pH Ur Specific [place] Urine Protein Urine Glucose (UA) Urine Ketones Urine Blood Urine Nitrite Ur Leukocyte Esterase Urine RBC Urine WBC Ur Squamous Epith Cells Urine Bacteria Urine Test Urine Opiates Screen Ur Barbiturates Screen Ur Phencyclidine Scrn Ur Amphetamines Screen U Benzodiazepines Scrn Urine Cocaine Screen U Marijuana (THC) Screen Ethyl Alcohol COVID-19 (MIC) Negative COVID-19 Clin Com See Note 05/16/21 05/16/21 05/16/21 22:32 22:32 22:32 WBC RBC Hgb Hct MCV MCH MCHC RDW Plt Count MPV Immature Gran % (Auto) Neut % (Auto) Lymph % (Auto) [place] % (Auto) Eos % (Auto) Baso % (Auto) Lymph # (Auto) [place] # (Auto) Eos # (Auto) Baso # (Auto) Abs Immat Gran (auto) Absolute Neuts (auto) Absolute Nucleated RBC Nucleated RBC % (auto) Sodium Potassium Chloride Carbon Dioxide Anion Gap BUN Creatinine Estim Creat Clear Calc Estimated GFR Random Glucose Calcium Total Bilirubin AST ALT Alkaline Phosphatase Total Protein Albumin Urine Color YELLOW Urine Appearance HAZY Urine pH 6.0 Ur Specific [place] <= 1.005 Urine Protein NEG Urine Glucose (UA) NEG Urine Ketones NEG Urine Blood NEG Urine Nitrite NEG Ur Leukocyte Esterase 1+ H Urine RBC 0-2 Urine WBC 0-2 Ur Squamous Epith Cells 1+ Urine Bacteria 1+ Urine Test NEGATIVE Urine Opiates Screen Ur Barbiturates Screen Ur Phencyclidine Scrn Ur Amphetamines Screen U Benzodiazepines Scrn Urine Cocaine Screen U Marijuana (THC) Screen Ethyl Alcohol < 10 COVID-19 (MIC) COVID-19 Clin Com 05/16/21 22:32 WBC RBC Hgb Hct MCV MCH MCHC RDW Plt Count MPV Immature Gran % (Auto) Neut % (Auto) Lymph % (Auto) [place] % (Auto) Eos % (Auto) Baso % (Auto) Lymph # (Auto) [place] # (Auto) Eos # (Auto) Baso # (Auto) Abs Immat Gran (auto) Absolute Neuts (auto) Absolute Nucleated RBC Nucleated RBC % (auto) Sodium Potassium Chloride Carbon Dioxide Anion Gap BUN Creatinine Estim Creat Clear Calc Estimated GFR Random Glucose Calcium Total Bilirubin AST ALT Alkaline Phosphatase Total Protein Albumin Urine Color Urine Appearance Urine pH Ur Specific [place] Urine Protein Urine Glucose (UA) Urine Ketones Urine Blood Urine Nitrite Ur Leukocyte Esterase Urine RBC Urine WBC Ur Squamous Epith Cells Urine Bacteria Urine Test Urine Opiates Screen Not Detected Ur Barbiturates Screen Not Detected Ur Phencyclidine Scrn Not Detected Ur Amphetamines Screen Not Detected U Benzodiazepines Scrn POSITIVE H Urine Cocaine Screen Not Detected U Marijuana (THC) Screen Not Detected Ethyl Alcohol COVID-19 (MIC) COVID-19 Clin Com DS: Summary Hospital Course Hospital Course: Patient is a 60-year-old female with history of psychotic illness who presents for auditory hallucinations affecting her mood in the face of going off medications few weeks ago; patient discovered to have UTI when in emergency room, started on course of antibiotics which she completed during admission. Patient also has distant opioid abuse history, but has remained sober for decad es on Suboxone. Patient signed CV. On admission, patient was friendly calm and cooperative. She endorsed depression but reported SI had resolved and that she would never actually hurt herself. Patient remained with auditory hallucinations and agreed to increasing Haldol to 5 mg at bedtime. Auditory hallucinations decreased some but she continued to take p.r.n. Haldol every morning so Haldol 2 mg was scheduled for a.m.. With this addition patient felt that auditory hallucinations became very minimal and was able to ignore them. Other than 1 brief moment of passive SI, patient's mood significantly improved and depression resolved. Patient continued to deny any suicidal or homicidal ideation and demonstrated appropriate behaviors and impulse control on the unit. She was forthcoming and invested in treatment. Patient tolerated Haldol well and denied any side effects. Patient shared that she gets extremely anxious every afternoon and wanted extra dose of hydroxyzine, however she said she says this is chronic and was not ready to share the reasons for this. Patient's insight also improved, as she no longer thought that AH was caused by witchcraft but understood and believed that it was due to a psychiatric illness. She was diagnosed with schizoaffective disorder, depressed type since she has a history of auditory hallucinations during periods of stable mood. Patient's other medications were continued; specification writer discussed risks of continued benzodiazepine use, however patient said she has been on it for a long time and not ready to change. As discharge approached, patient's mood was good, she was future oriented and feeling stable and ready to go home. Patient was not in imminent risk for harm to self or others and her request for discharge honored. Ice Platform Supervisor discussed risks/side effects of medication regimen, including haldol and trazodone, (and diazepam and zolpidem which are patients outpt meds, continued during admission); patient communicated understanding of benefits, risks and side-effects of medications and wants to continue with regimen. Patient agrees that current doses seem appropriate and denies medication side-effects. Patient agrees to reach out to outpatient provider with any medications concerns. Time Spent with Patient Time attestation: Total time spent providing and/or coordinating discharge services:
== END 2021-05-23 12:45 | disposition home or self-care (01) | DRG 750 ==
LOC: HO.ED 22:31 → HO.PM5 05-17 19:48
PROVIDERS: Admitting Provider Psychiatry & Neurology Psychiatry; Emergency Provider Student in an Organized Health Care Education/Training Program; Visit Provider Psychiatry & Neurology Psychiatry
DX: F25.1 Schizoaffective disorder, depressive type (principal); F11.20 Opioid dependence, uncomplicated; F17.210 Nicotine dependence, cigarettes, uncomplicated; Z20.822 Contact with and (suspected) exposure to COVID-19; Z71.6 Tobacco abuse counseling; Z79.899 Other long term (current) drug therapy
CPT/HCPCS: 36415; 80053; 80307; 81001; 81025; 82077; 85025; 87635; 93005; 99285; Q0163